=== PATIENT | male | born 1945 | race Hispanic/Latino ===

== ENCOUNTER → 2017-03-10 | Outpatient (CLI) | payer OTHER ==
[~2017-03-10] MED LIST: ASPI-555 PO; ATOR10TA69 PO; CLOP75TA32 PO; LISI-613 PO; LISI1TAB11 PO
[2017-03-10 11:00] LABS: CREATININE 0.9 mg/dL (0.5-1.5)
== END | disposition home or self-care (01) ==
LOC: LAB 10:09
PROVIDERS: ATTEND Urology
DX: N45.1 Epididymitis (principal); R31.29 Other microscopic hematuria
CPT/HCPCS: 36415; 82565; 84520

== ENCOUNTER → 2017-03-14 | Outpatient (CLI) | payer OTHER ==
[~2017-03-14] MED LIST changes: +IOPAMIDOL-370 75 ML VIAL IV ONE
== END | disposition home or self-care (01) ==
LOC: RAH 07:24
PROVIDERS: ATTEND Urology
DX: N45.3 Epididymo-orchitis (principal); R31.29 Other microscopic hematuria; N28.1 Cyst of kidney, acquired; I70.0 Atherosclerosis of aorta; N43.3 Hydrocele, unspecified; K57.90 Diverticulosis of intestine, part unspecified, without perforation or abscess without bleeding
CPT/HCPCS: 74178; 76870; Q9967

== ENCOUNTER → 2017-07-26 | Outpatient (CLI) | payer OTHER ==
[~2017-07-26] MED LIST changes: -IOPAMIDOL-370 75 ML VIAL IV ONE
== END | disposition home or self-care (01) ==
LOC: RAH 08:51
PROVIDERS: ATTEND Physical Medicine & Rehabilitation
DX: M25.552 Pain in left hip (principal); M25.551 Pain in right hip
CPT/HCPCS: 73522

== ENCOUNTER → 2021-05-07 | Outpatient (CLI) | payer OTHER ==
[~2021-05-07] MED LIST changes: -ASPI-555 PO; +ASPI-556 PO; -LISI-613 PO; -LISI1TAB11 PO; +LISI1TAB51 PO; +LISI20TA24 PO
== END | disposition home or self-care (01) ==
LOC: SLP 21:00
PROVIDERS: ATTEND Internal Medicine Cardiovascular Disease
DX: G47.33 Obstructive sleep apnea (adult) (pediatric) (principal)
CPT/HCPCS: 95810; 95811

== ENCOUNTER → 2021-05-22 | Outpatient (CLI) | payer OTHER | END | disposition home or self-care (01) | LOC: SLP 20:22 | PROVIDERS: ATTEND Internal Medicine Cardiovascular Disease | DX: G47.33 Obstructive sleep apnea (adult) (pediatric) (principal) | CPT/HCPCS: 95811 ==

== ENCOUNTER → 2021-05-26 | Outpatient (CLI) | payer OTHER | END | disposition home or self-care (01) | LOC: SHCH 12:28 | PROVIDERS: ATTEND Internal Medicine Cardiovascular Disease | DX: I35.1 Nonrheumatic aortic (valve) insufficiency (principal); I65.23 Occlusion and stenosis of bilateral carotid arteries; R01.1 Cardiac murmur, unspecified; R07.89 Other chest pain | CPT/HCPCS: 93306; 93880 ==

== ENCOUNTER → 2021-07-09 | Outpatient (CLI) | payer OTHER ==
[~2021-07-09] MED LIST changes: +REGADENOSON 0.4 MG/5 ML PF SYG IVP SCH
== END | disposition home or self-care (01) ==
LOC: OIH 08:20
PROVIDERS: ATTEND Internal Medicine Cardiovascular Disease
DX: I11.9 Hypertensive heart disease without heart failure (principal); I25.2 Old myocardial infarction; E78.5 Hyperlipidemia, unspecified; Z95.5 Presence of coronary angioplasty implant and graft
CPT/HCPCS: 78452; 93017; 96374; A9500 ×2; J2785

== ENCOUNTER 2021-08-27 06:37 | Day surgery (SDC) | payer OTHER ==
[2021-08-25 13:46] LABS: BASOPHILS % (AUTO) 0.6 % (0.0-5.0); EOSINOPHILS % (AUTO) 4.6 % (0.0-8.0); HEMATOCRIT 45.7 % (42-54); LYMPHOCYTES % (AUTO) 31.6 % (21.0-51.0); MEAN CORPUSCULAR HEMOGLOBIN 31.2 pg (27.0-33.0); MEAN CORPUSCULAR HGB CONC 33.9 g/dL (32.0-36.0); MONOCYTES % (AUTO) 7.8 % (3.0-13.0); NEUTROPHILS % (AUTO) 55.2 % (40.0-77.0); PLATELET COUNT (AUTO) 224 K/uL (130-400); RED BLOOD CELL COUNT(AUTO) 4.97 MIL/uL (4.50-6.20); RED CELL DISTRIBUTION WIDTH 14.3 % (11.0-15.5); WHITE BLOOD COUNT (AUTO) 9.6 K/uL (4.8-10.8)
[2021-08-25 13:51] LABS: APPEARANCE,URINE CLEAR (CLEAR); BILIRUBIN,URINE NEGATIVE (NEGATIVE); COLOR,URINE YELLOW (YELLOW); GLUCOSE, URINE (UA) NEGATIVE (NEGATIVE); KETONES,URINE NEGATIVE (NEGATIVE); LEUKOCYTE ESTERASE ,URINE NEGATIVE (NEGATIVE); NITRATE,URINE NEGATIVE (NEGATIVE); OCCULT BLOOD,URINE NEGATIVE (NEGATIVE); PROTEIN,URINE 100 mg/dL (NEGATIVE); UROBILINOGEN,URINE 0.2 mg/dL (0.2-1.0)
[2021-08-25 13:58] LABS: CREATININE 1.3 mg/dL (0.5-1.5); POTASSIUM 4.1 mmol/L (3.5-5.1)
[2021-08-25 14:00] LABS: INR 0.93 (0.85-1.15); PROTHROMBIN TIME 10.2 SEC (9.6-11.6)
[2021-08-25 14:01] LABS: PARTIAL THROMBOPLASTIN TIME 27.6 SEC (26.3-35.5)
[2021-08-25 14:19] LABS: B-TYPE NATRIURETIC PEPTIDE 83 pg/mL (0-100)
[2021-08-25 14:45] LABS: RBC,URINE 0-1 /HPF (0-1); WBC,URINE 0-1 /HPF (0-1)
[2021-08-25 14:46] LABS: BACTERIA,URINE Rare /HPF (None Seen); SQUAMOUS EPITHELIAL CELL,UR Rare /HPF (0-2)
[2021-08-25 16:13] VITALS: BP 196/67
[2021-08-27] VITALS (12 sets, daily range): BP systolic 140–195; BP diastolic 50–90
[~2021-08-27] VITALS: Ht 175.3 cm; Wt 110.0 kg
[~2021-08-27 06:37] MED LIST changes: -REGADENOSON 0.4 MG/5 ML PF SYG IVP SCH
[2021-08-27] MEDS ORDERED: 0.9%NACL 1000ML 1,000 ML IV ONE (07:01)
[2021-08-27] MEDS ORDERED: FURO40TA5 PO (07:30)
[2021-08-27] MEDS ORDERED: LISI1TAB51 PO (07:30)
[2021-08-27] MEDS ORDERED: AMLO-257 PO (07:30)
[2021-08-27] MEDS ORDERED: FLUT15.845 NS (07:30)
[2021-08-27] MEDS ORDERED: ROSU20TA31 PO (07:30)
[2021-08-27] MEDS ORDERED: LIDOCAINE HCL 400MG/20ML VIAL ONE (10:52)
[2021-08-27] MEDS ORDERED: NITROGLYCERIN 50MG VIAL ONE (10:52)
[2021-08-27] MEDS ORDERED: IOHEXOL-350 50ML VIAL IV ONE (10:52)
[2021-08-27] MEDS ORDERED: HEPARIN 10,000 UNIT/10ML (1,000 UNIT/ML) VIAL ONE (10:52)
[2021-08-27] MEDS ORDERED: MEPERIDINE-PF 25 MG/ML SYG ONE ×2 (10:52→11:29)
[2021-08-27] MEDS ORDERED: SODIUM BICARB 50MEQ 50ML VIAL 50 ML ONE (10:52)
[2021-08-27] MEDS ORDERED: IOHEXOL 350 MG/ML 100ML INFUS..BTL IV ONE (10:52)
[2021-08-27] MEDS ORDERED: MIDAZOLAM HCL 1 MG/ML 2ML VIAL ONE ×2 (10:52→11:29)
[2021-08-27] MEDS ORDERED: HYDRALAZINE 20MG/ML VIAL ONE (11:39)
[2021-08-27] MEDS ORDERED: 0.9%NACL 1000ML 1,000 ML IV SCH (12:00)
== END 2021-08-27 18:07 | disposition home or self-care (01) ==
LOC: DAH 06:37
PROVIDERS: ATTEND Internal Medicine Cardiovascular Disease
DX: I25.119 Atherosclerotic heart disease of native coronary artery with unspecified angina pectoris (principal); I13.0 Hypertensive heart and chronic kidney disease with heart failure and stage 1 through stage 4 chronic kidney disease, or unspecified chronic kidney disease; N18.9 Chronic kidney disease, unspecified; I50.32 Chronic diastolic (congestive) heart failure; I42.9 Cardiomyopathy, unspecified; E66.9 Obesity, unspecified; G47.33 Obstructive sleep apnea (adult) (pediatric); Z79.899 Other long term (current) drug therapy; Z79.01 Long term (current) use of anticoagulants; Z95.5 Presence of coronary angioplasty implant and graft; Z87.891 Personal history of nicotine dependence; Z82.49 Family history of ischemic heart disease and other diseases of the circulatory system
CPT/HCPCS: 36415; 71045; 80048; 81001; 83880; 85025; 85610; 85730; 93005; 93458; A4215; A4216; A4221; A4222; A4223 ×3; A4606; A4663; C1760; C1894; J0360; J1644; J2175 ×2; J2250 ×2; J3490 ×3; J7030; Q9965; Q9967; 99156; 99157

== ENCOUNTER → 2022-01-21 | Outpatient (CLI) | payer OTHER ==
[~2022-01-21] MED LIST changes: +AMLO-257 PO; -ATOR10TA69 PO; -CLOP75TA32 PO; +FLUT15.845 NS; +FURO40TA5 PO; -LISI20TA24 PO; +ROSU20TA31 PO
[2022-01-21 12:31] LABS: BASOPHILS % (AUTO) 0.7 % (0.0-5.0); EOSINOPHILS % (AUTO) 5.4 % (0.0-8.0); HEMATOCRIT 44.5 % (42-54); MEAN CORPUSCULAR HEMOGLOBIN 31.2 pg (27.0-33.0); MEAN CORPUSCULAR HGB CONC 34.4 g/dL (32.0-36.0); MEAN CORPUSCULAR VOLUME 90.8 fL (79-99); MONOCYTES % (AUTO) 8.2 % (3.0-13.0); NEUTROPHILS % (AUTO) 60.3 % (40.0-77.0); PLATELET COUNT (AUTO) 236 K/uL (130-400); RED CELL DISTRIBUTION WIDTH 14.2 % (11.0-15.5); WHITE BLOOD COUNT (AUTO) 11.3 K/uL (4.8-10.8)
[2022-01-21 12:48] LABS: HEMOGLOBIN A1C 5.6 % (4.0-6.0)
[2022-01-21 12:57] LABS: ALBUMIN 3.8 g/dL (3.5-5.0); CREATININE 1.1 mg/dL (0.5-1.5); POTASSIUM 4.4 mmol/L (3.5-5.1); TOTAL PROTEIN, SERUM 7.1 g/dL (6.0-8.3)
== END | disposition home or self-care (01) ==
LOC: LAB 08:09
PROVIDERS: ATTEND Internal Medicine Cardiovascular Disease
DX: I25.10 Atherosclerotic heart disease of native coronary artery without angina pectoris (principal); I10 Essential (primary) hypertension; Z79.899 Other long term (current) drug therapy
CPT/HCPCS: 36415; 80053; 80061; 83036; 85025

== ENCOUNTER 2022-02-05 22:30 | Observation (INO) | payer OTHER ==
[~2022-02-05] VITALS: Ht 175.3 cm; Wt 104.6 kg
[2022-02-05 23:11] LABS: BASOPHILS % (AUTO) 0.6 % (0.0-5.0); EOSINOPHILS % (AUTO) 5.5 % (0.0-8.0); HEMATOCRIT 42.1 % (42-54); LYMPHOCYTES % (AUTO) 36.1 % (21.0-51.0); MEAN CORPUSCULAR HEMOGLOBIN 31.3 pg (27.0-33.0); MEAN CORPUSCULAR HGB CONC 35.2 g/dL (32.0-36.0); MONOCYTES % (AUTO) 9.4 % (3.0-13.0); NEUTROPHILS % (AUTO) 48.1 % (40.0-77.0); PLATELET COUNT (AUTO) 221 K/uL (130-400); RED BLOOD CELL COUNT(AUTO) 4.73 MIL/uL (4.50-6.20); RED CELL DISTRIBUTION WIDTH 13.5 % (11.0-15.5)
[2022-02-05 23:19] LABS: APPEARANCE,URINE CLEAR (CLEAR); BILIRUBIN,URINE NEGATIVE (NEGATIVE); COLOR,URINE LIGHT-YELLOW (YELLOW); GLUCOSE, URINE (UA) NEGATIVE (NEGATIVE); KETONES,URINE NEGATIVE (NEGATIVE); LEUKOCYTE ESTERASE ,URINE NEGATIVE Leu/uL (NEGATIVE); NITRATE,URINE NEGATIVE (NEGATIVE); PH,URINE 5.5 (5.0-8.0); PROTEIN,URINE 100 mg/dL (NEGATIVE); UROBILINOGEN,URINE 0.2 mg/dL (0.2-1.0)
[2022-02-05 23:23] LABS: MUCUS,URINE RARE LPF (None Seen); SQUAMOUS EPITHELIAL CELL,UR RARE /HPF (0-2)
[2022-02-05 23:39] LABS: CREATININE 1.1 mg/dL (0.5-1.5); POTASSIUM 4.3 mmol/L (3.5-5.1)
[2022-02-05 23:43] LABS: ALBUMIN 3.8 g/dL (3.5-5.0); TOTAL PROTEIN, SERUM 6.6 g/dL (6.0-8.3)
[2022-02-06] MEDS ORDERED: POTASSIUM CHLORIDE 20MEQ/100ML 100 ML IV PRN (02:00)
[2022-02-06] MEDS ORDERED: LABETALOL 20MG SYG IV PRN (02:00)
[2022-02-06] MEDS ORDERED: MAGNESIUM 2GM PREMIX 50ML 50 ML IV PRN (02:00)
[2022-02-06] MEDS ORDERED: DEXTROSE 50%-WATER 50 ML DISP.SYRIN IV PRN (02:00)
[2022-02-06] MEDS ORDERED: ACETAMINOPHEN 650 MG SUPPOSITORY RC PRN (02:00)
[2022-02-06] MEDS ORDERED: CLONIDINE HCL 0.1 MG TABLET PO PRN (02:00)
[2022-02-06] MEDS ORDERED: HYDRALAZINE 20MG/ML VIAL IV PRN (02:00)
[2022-02-06] MEDS ORDERED: LIDOCAINE HCL-MPF 1% 2ML VIAL IV PRN (02:00)
[2022-02-06] MEDS ORDERED: LACTULOSE 20 GM/30 ML UDCUP PO PRN (02:00)
[2022-02-06] MEDS ORDERED: ONDANSETRON 4MG INJ IVP PRN (02:00)
[2022-02-06] MEDS ORDERED: ASPIRIN 81MG CHEW TAB PO ONE (02:00)
[2022-02-06] MEDS ORDERED: ACETAMINOPHEN 325 MG TAB PO PRN (02:00)
[2022-02-06] MEDS ORDERED: HEPARIN 5,000 UNIT VIAL SQ PRN (02:00)
[2022-02-06] MEDS ORDERED: DOCUSATE SODIUM 100 MG CAP PO PRN (02:00)
[2022-02-06] MEDS ORDERED: GLUCAGON 1MG KIT 1 MG ML IM PRN (02:00)
[2022-02-06 02:29] LABS: BASOPHILS % (AUTO) 0.7 % (0.0-5.0); EOSINOPHILS % (AUTO) 5.1 % (0.0-8.0); HEMATOCRIT 41.8 % (42-54); MEAN CORPUSCULAR HEMOGLOBIN 31.4 pg (27.0-33.0); MEAN CORPUSCULAR HGB CONC 34.4 g/dL (32.0-36.0); MEAN CORPUSCULAR VOLUME 91.3 fL (79-99); MONOCYTES % (AUTO) 7.7 % (3.0-13.0); NEUTROPHILS % (AUTO) 48.2 % (40.0-77.0); PLATELET COUNT (AUTO) 199 K/uL (130-400); RED BLOOD CELL COUNT(AUTO) 4.58 MIL/uL (4.50-6.20); RED CELL DISTRIBUTION WIDTH 13.4 % (11.0-15.5); WHITE BLOOD COUNT (AUTO) 8.8 K/uL (4.8-10.8)
[2022-02-06 05:15] LABS: INR 0.94 (0.85-1.15); PROTHROMBIN TIME 10.3 SEC (9.6-11.6)
[2022-02-06 05:16] LABS: PARTIAL THROMBOPLASTIN TIME 27.3 SEC (26.3-35.5)
[2022-02-06 05:20] VITALS: BP 155/60
[2022-02-06] MEDS: HEPARIN 25,000 UNITS/250ML D5W 250 ML IV SCH ×2 (05:34→20:50)
[2022-02-06 07:45] VITALS: BP 133/51
[2022-02-06] MEDS ORDERED: IOHEXOL 350 MG/ML 100ML INFUS..BTL IV ONE (08:15)
[2022-02-06] MEDS: ASPIRIN 81MG CHEW TAB PO SCH (09:29)
[2022-02-06 10:56] VITALS: BP 123/59
[2022-02-06 11:13] LABS: INR 0.98 (0.85-1.15); PROTHROMBIN TIME 10.7 SEC (9.6-11.6)
[2022-02-06 11:14] LABS: PARTIAL THROMBOPLASTIN TIME 78.1 SEC (26.3-35.5)
[2022-02-06 16:00] VITALS: BP 141/69
[2022-02-06] MEDS ORDERED: FUROSEMIDE 40MG VIAL IV ONE (18:30)
[2022-02-06 19:56] VITALS: BP 161/52
[2022-02-06] MEDS: ATORVASTATIN 40 MG TABLET PO SCH (20:25)
[2022-02-06] MEDS: TICAGRELOR 90 MG TABLET PO SCH (20:25)
[2022-02-06] MEDS: TEMAZEPAM 15 MG CAPSULE PO PRN (21:53)
[2022-02-06] MEDS: LISINOPRIL 20 MG TABLET PO SCH (21:53)
[2022-02-06 23:50] VITALS: BP 148/31
[2022-02-07] VITALS (10 sets, daily range): BP systolic 119–170; BP diastolic 52–72
[2022-02-07 04:23] LABS: BASOPHILS % (AUTO) 0.7 % (0.0-5.0); EOSINOPHILS % (AUTO) 5.6 % (0.0-8.0); HEMATOCRIT 42.4 % (42-54); LYMPHOCYTES % (AUTO) 31.5 % (21.0-51.0); MEAN CORPUSCULAR HEMOGLOBIN 31.6 pg (27.0-33.0); MEAN CORPUSCULAR HGB CONC 34.7 g/dL (32.0-36.0); MEAN CORPUSCULAR VOLUME 91.2 fL (79-99); MONOCYTES % (AUTO) 8.2 % (3.0-13.0); NEUTROPHILS % (AUTO) 53.6 % (40.0-77.0); PLATELET COUNT (AUTO) 202 K/uL (130-400); RED BLOOD CELL COUNT(AUTO) 4.65 MIL/uL (4.50-6.20); RED CELL DISTRIBUTION WIDTH 13.8 % (11.0-15.5); WHITE BLOOD COUNT (AUTO) 9.5 K/uL (4.8-10.8)
[2022-02-07 04:34] LABS: CREATININE 1.1 mg/dL (0.5-1.5); MAGNESIUM 1.7 mg/dL (1.80-2.40); PHOSPHORUS 4.1 mg/dL (2.5-4.9); POTASSIUM 3.7 mmol/L (3.5-5.1)
[2022-02-07 07:03] LABS: INR 0.98 (0.85-1.15); PROTHROMBIN TIME 10.7 SEC (9.6-11.6)
[2022-02-07 07:04] LABS: PARTIAL THROMBOPLASTIN TIME 57.8 SEC (26.3-35.5)
[2022-02-07] MEDS ORDERED: KCL 20 MEQ ERTAB PO ONE (08:05)
[2022-02-07] MEDS: LISINOPRIL 20 MG TABLET PO SCH ×2 (08:25→20:40)
[2022-02-07] MEDS: TICAGRELOR 90 MG TABLET PO SCH ×2 (08:25→20:40)
[2022-02-07] MEDS: AMLODIPINE 5 MG TAB PO SCH (08:25)
[2022-02-07] MEDS: FUROSEMIDE 40MG VIAL IV SCH (08:26)
[2022-02-07] MEDS: ASPIRIN 81MG CHEW TAB PO SCH (08:26)
[2022-02-07] MEDS ORDERED: HYDROCHLOROTHIAZIDE 25 MG TABLET PO SCH (09:00)
[2022-02-07] MEDS ORDERED: HEPARIN 10,000 UNIT/10ML (1,000 UNIT/ML) VIAL ONE (10:43)
[2022-02-07] MEDS ORDERED: IOHEXOL 350 MG/ML 100ML INFUS..BTL IV ONE (10:43)
[2022-02-07] MEDS ORDERED: VERAPAMIL HCL 2.5 MG/ML VIAL ONE (10:43)
[2022-02-07] MEDS ORDERED: MIDAZOLAM HCL 1 MG/ML 2ML VIAL ONE ×2 (10:43→11:56)
[2022-02-07] MEDS ORDERED: NITROGLYCERIN 50MG VIAL ONE (10:43)
[2022-02-07] MEDS ORDERED: IOHEXOL-350 50ML VIAL IV ONE (10:43)
[2022-02-07] MEDS ORDERED: LIDOCAINE HCL 400MG/20ML VIAL ONE (10:44)
[2022-02-07] MEDS ORDERED: FENTANYL CITRATE PF 50 MCG/1 ML 2ML VIAL ONE (10:44)
[2022-02-07] MEDS ORDERED: GLUCAGON 1MG KIT 1 MG ML IM PRN (13:00)
[2022-02-07] MEDS ORDERED: DEXTROSE 50%-WATER 50 ML DISP.SYRIN IV PRN (13:00)
[2022-02-07] MEDS: METOPROLOL SUCCINATE 25 MG TAB.SR.24H PO SCH (14:24)
[2022-02-07] MEDS: ATORVASTATIN 40 MG TABLET PO SCH (20:40)
[2022-02-07] MEDS: TEMAZEPAM 15 MG CAPSULE PO PRN (20:50)
[2022-02-08 00:24] VITALS: BP 150/54
[2022-02-08 03:24] VITALS: BP 149/66
[2022-02-08 03:54] LABS: BASOPHILS % (AUTO) 0.4 % (0.0-5.0); EOSINOPHILS % (AUTO) 5.5 % (0.0-8.0); HEMATOCRIT 42.3 % (42-54); LYMPHOCYTES % (AUTO) 22.1 % (21.0-51.0); MEAN CORPUSCULAR HEMOGLOBIN 31.4 pg (27.0-33.0); MEAN CORPUSCULAR HGB CONC 35.2 g/dL (32.0-36.0); MEAN CORPUSCULAR VOLUME 89.1 fL (79-99); MONOCYTES % (AUTO) 8.7 % (3.0-13.0); PLATELET COUNT (AUTO) 201 K/uL (130-400); RED BLOOD CELL COUNT(AUTO) 4.75 MIL/uL (4.50-6.20); WHITE BLOOD COUNT (AUTO) 9.8 K/uL (4.8-10.8)
[2022-02-08 08:30] VITALS: BP 128/58
[2022-02-08] MEDS: ASPIRIN 81MG CHEW TAB PO SCH (09:58)
[2022-02-08] MEDS: LISINOPRIL 20 MG TABLET PO SCH (09:58)
[2022-02-08] MEDS: AMLODIPINE 5 MG TAB PO SCH (09:58)
[2022-02-08] MEDS: FUROSEMIDE 40MG VIAL IV SCH (09:58)
[2022-02-08] MEDS: METOPROLOL SUCCINATE 25 MG TAB.SR.24H PO SCH (09:58)
[2022-02-08] MEDS: TICAGRELOR 90 MG TABLET PO SCH (10:00)
[2022-02-08 12:20] VITALS: BP 139/65
[2022-02-08] MEDS ORDERED: LISI20TA24 PO (12:40)
[2022-02-08] MEDS ORDERED: TICA90TA PO (12:40)
[2022-02-08] MEDS ORDERED: AMLO10TA4 PO (12:40)
[2022-02-08] MEDS ORDERED: SPIR25TA PO (12:40)
[2022-02-08] MEDS ORDERED: METO25TA6 PO (12:40)
== END 2022-02-08 15:20 | disposition home or self-care (01) ==
LOC: EDH 22:30 → EDHIP 02-06 01:41 → 2DH 02-06 03:26
PROVIDERS: ADMIT Internal Medicine; ATTEND Internal Medicine
DX: I25.110 Atherosclerotic heart disease of native coronary artery with unstable angina pectoris (principal); I16.1 Hypertensive emergency; I11.0 Hypertensive heart disease with heart failure; I50.32 Chronic diastolic (congestive) heart failure; I25.2 Old myocardial infarction; I35.2 Nonrheumatic aortic (valve) stenosis with insufficiency; I42.9 Cardiomyopathy, unspecified; I25.10 Atherosclerotic heart disease of native coronary artery without angina pectoris; G47.33 Obstructive sleep apnea (adult) (pediatric); E11.9 Type 2 diabetes mellitus without complications; I35.0 Nonrheumatic aortic (valve) stenosis; F41.9 Anxiety disorder, unspecified; E66.9 Obesity, unspecified; E78.00 Pure hypercholesterolemia, unspecified; Z68.34 Body mass index [BMI] 34.0-34.9, adult; Z72.0 Tobacco use; Z79.02 Long term (current) use of antithrombotics/antiplatelets; Z79.82 Long term (current) use of aspirin; Z91.199 Patient's noncompliance with other medical treatment and regimen due to unspecified reason; Z95.5 Presence of coronary angioplasty implant and graft; Z79.899 Other long term (current) drug therapy; Z98.890 Other specified postprocedural states
CPT/HCPCS: 99285; 84484 ×3; 80053; 85025 ×4; 81001; 36415 ×4; 71045; 93005 ×3; 96365; 96366 ×2; 96375; 84443; 83880; 85378; 85610 ×3; 85730 ×4; 71270; 93306; 93356; 93970; 93460; 96376 ×2; 96367; 83735; 84100; 80048; G0378 ×57; J0360; J1644 ×7; J1940 ×3; Q9967; C1769 ×3; C1894 ×5; C1760; Q9965; J3475; J3010; J3490 ×3; J2250 ×2; 99156; 99157

== ENCOUNTER 2022-02-15 21:44 | Emergency (ER) | payer OTHER ==
[~2022-02-15 21:44] MED LIST changes: -AMLO-257 PO; +AMLO10TA4 PO; -FLUT15.845 NS; -LISI1TAB51 PO; +LISI20TA24 PO; +METO25TA6 PO; +SPIR25TA PO; +TICA90TA PO
[2022-02-15 22:10] LABS: BASOPHILS % (AUTO) 0.7 % (0.0-5.0); EOSINOPHILS % (AUTO) 5.6 % (0.0-8.0); HEMATOCRIT 42.6 % (42-54); LYMPHOCYTES % (AUTO) 32.1 % (21.0-51.0); MEAN CORPUSCULAR HEMOGLOBIN 31.1 pg (27.0-33.0); MEAN CORPUSCULAR HGB CONC 35.2 g/dL (32.0-36.0); MEAN CORPUSCULAR VOLUME 88.4 fL (79-99); MONOCYTES % (AUTO) 7.5 % (3.0-13.0); NEUTROPHILS % (AUTO) 53.9 % (40.0-77.0); PLATELET COUNT (AUTO) 212 K/uL (130-400); RED BLOOD CELL COUNT(AUTO) 4.82 MIL/uL (4.50-6.20); RED CELL DISTRIBUTION WIDTH 13.7 % (11.0-15.5); WHITE BLOOD COUNT (AUTO) 9.5 K/uL (4.8-10.8)
[2022-02-15 22:20] LABS: CREATININE 1.2 mg/dL (0.5-1.5); POTASSIUM 4.2 mmol/L (3.5-5.1)
[2022-02-15 22:21] LABS: INR 0.94 (0.85-1.15); PROTHROMBIN TIME 10.3 SEC (9.6-11.6)
[2022-02-15 22:22] LABS: PARTIAL THROMBOPLASTIN TIME 27.6 SEC (26.3-35.5)
[2022-02-15 22:25] LABS: ALBUMIN 3.8 g/dL (3.5-5.0); TOTAL PROTEIN, SERUM 6.9 g/dL (6.0-8.3)
[2022-02-15] MEDS ORDERED: NITR0.4T50 SL (22:49)
[2022-02-15 22:50] LABS: B-TYPE NATRIURETIC PEPTIDE 111 pg/mL (0-100)
== END 2022-02-16 01:07 | disposition home or self-care (01) ==
LOC: EDH 21:44
DX: R07.89 Other chest pain (principal); F17.200 Nicotine dependence, unspecified, uncomplicated; E78.00 Pure hypercholesterolemia, unspecified; I10 Essential (primary) hypertension; I25.2 Old myocardial infarction; Z79.82 Long term (current) use of aspirin; Z79.899 Other long term (current) drug therapy; Z20.822 Contact with and (suspected) exposure to COVID-19
CPT/HCPCS: 99285; 71045; 87635; 84484; 80053; 83880; 85025; 85610; 85730; 87804 ×2; 36415; 93005; C9803

== ENCOUNTER → 2022-03-30 | Outpatient (CLI) | payer OTHER ==
[~2022-03-30] MED LIST changes: +NITR0.4T50 SL
== END | disposition home or self-care (01) ==
LOC: SHCH 08:09
PROVIDERS: ATTEND Internal Medicine Cardiovascular Disease
DX: I08.0 Rheumatic disorders of both mitral and aortic valves (principal)
CPT/HCPCS: 93306

== ENCOUNTER → 2022-04-15 | Outpatient (CLI) | payer OTHER ==
[2022-04-15 10:36] LABS: BASOPHILS % (AUTO) 0.4 % (0.0-5.0); EOSINOPHILS % (AUTO) 1.1 % (0.0-8.0); HEMATOCRIT 41.7 % (42-54); MEAN CORPUSCULAR HEMOGLOBIN 31.5 pg (27.0-33.0); MEAN CORPUSCULAR HGB CONC 34.8 g/dL (32.0-36.0); MEAN CORPUSCULAR VOLUME 90.7 fL (79-99); MONOCYTES % (AUTO) 6.8 % (3.0-13.0); NEUTROPHILS % (AUTO) 69.5 % (40.0-77.0); PLATELET COUNT (AUTO) 226 K/uL (130-400); RED CELL DISTRIBUTION WIDTH 13.8 % (11.0-15.5); WHITE BLOOD COUNT (AUTO) 9.1 K/uL (4.8-10.8)
[2022-04-15 10:47] LABS: CREATININE 1.3 mg/dL (0.5-1.5)
== END | disposition home or self-care (01) ==
LOC: LAB 08:59
PROVIDERS: ATTEND Urology
DX: R31.0 Gross hematuria (principal)
CPT/HCPCS: 36415; 80048; 85025

== ENCOUNTER → 2022-04-18 | Outpatient (CLI) | payer OTHER ==
[~2022-04-18] MED LIST changes: +IOHEXOL 350 MG/ML 100ML INFUS..BTL IV ONE
== END | disposition home or self-care (01) ==
LOC: RAH 08:08
PROVIDERS: ATTEND Urology
DX: N28.1 Cyst of kidney, acquired (principal); K57.30 Diverticulosis of large intestine without perforation or abscess without bleeding; I71.43 Infrarenal abdominal aortic aneurysm, without rupture; R31.0 Gross hematuria
CPT/HCPCS: 74178; Q9967

== ENCOUNTER → 2022-09-21 | Outpatient (CLI) | payer OTHER ==
[~2022-09-21] MED LIST changes: -IOHEXOL 350 MG/ML 100ML INFUS..BTL IV ONE; -ROSU20TA31 PO; +ROSU20TA73 PO
== END | disposition home or self-care (01) ==
LOC: RAH 11:58
PROVIDERS: ATTEND Family Medicine
DX: S09.90XA Unspecified injury of head, initial encounter (principal); G31.9 Degenerative disease of nervous system, unspecified; R47.81 Slurred speech; W19.XXXA Unspecified fall, initial encounter; R90.82 White matter disease, unspecified; X58.XXXA Exposure to other specified factors, initial encounter; Y93.89 Activity, other specified; Y92.89 Other specified places as the place of occurrence of the external cause; Y99.8 Other external cause status
CPT/HCPCS: 70450

== ENCOUNTER 2022-11-23 19:31 | Inpatient (IN) | payer OTHER ==
[~2022-11-23] VITALS: Ht 177.8 cm; Wt 102.8 kg
[2022-11-23 19:57] LABS: BASOPHILS # (AUTO) 0.06 K/uL (0.00-0.20); BASOPHILS % (AUTO) 0.7 % (0.0-5.0); EOSINOPHILS # (AUTO) 0.29 K/uL (0.00-0.70); EOSINOPHILS % (AUTO) 3.5 % (0.0-8.0); HEMATOCRIT 40.6 % (42-54); IMMATURE GRANULOCYTE ABSOLUTE 0.03 K/uL (0-1); LYMPHOCYTES # (AUTO) 2.4 K/uL (1.0-4.8); LYMPHOCYTES % (AUTO) 28.6 % (21.0-51.0); MEAN CORPUSCULAR HEMOGLOBIN 31.6 pg (27.0-33.0); MEAN CORPUSCULAR HGB CONC 34.7 g/dL (32.0-36.0); MONOCYTES # (AUTO) 0.7 K/uL (0.1-1.0); MONOCYTES % (AUTO) 8.1 % (3.0-13.0); NEUTROPHILS # (AUTO) 4.9 K/uL (1.8-7.7); NEUTROPHILS % (AUTO) 58.7 % (40.0-77.0); PLATELET COUNT (AUTO) 196 K/uL (130-400); RED BLOOD CELL COUNT(AUTO) 4.46 MIL/uL (4.50-6.20); RED CELL DISTRIBUTION WIDTH 14.3 % (11.0-15.5); WHITE BLOOD COUNT (AUTO) 8.4 K/uL (4.8-10.8)
[2022-11-23 20:06] LABS: CREATININE 1.2 mg/dL (0.5-1.5)
[2022-11-23 20:09] LABS: INR 0.94 (0.85-1.15); PROTHROMBIN TIME 10.9 SEC (9.6-11.6)
[2022-11-23 20:10] LABS: ALBUMIN 3.5 g/dL (3.5-5.0); BILIRUBIN,TOTAL 0.4 mg/dL (0.2-1.0); MAGNESIUM 1.7 mg/dL (1.80-2.40); PARTIAL THROMBOPLASTIN TIME 28.8 SEC (26.3-35.5); TOTAL PROTEIN, SERUM 6.4 g/dL (6.0-8.3)
[2022-11-23 20:19] LABS: B-TYPE NATRIURETIC PEPTIDE 423 pg/mL (0-100)
[2022-11-23] MEDS ORDERED: ACETAMINOPHEN 650 MG SUPPOSITORY RC PRN (22:30)
[2022-11-23] MEDS ORDERED: LABETALOL 20MG SYG IV PRN (22:30)
[2022-11-23] MEDS ORDERED: HYDRALAZINE 20MG/ML VIAL IV PRN (22:30)
[2022-11-23] MEDS ORDERED: LACTULOSE 20 GM/30 ML UDCUP PO PRN (22:30)
[2022-11-23] MEDS ORDERED: CLONIDINE HCL 0.1 MG TABLET PO PRN (22:30)
[2022-11-23] MEDS ORDERED: NITROGLYCERIN 0.4 MG SL TAB SL PRN (22:30)
[2022-11-23] MEDS ORDERED: ONDANSETRON 4MG INJ IVP PRN (22:30)
[2022-11-23] MEDS ORDERED: TEMAZEPAM 15 MG CAPSULE PO PRN (22:30)
[2022-11-23] MEDS ORDERED: ACETAMINOPHEN 325 MG TAB PO PRN (22:30)
[2022-11-23 23:17] LABS: CREATINE KINASE, TOTAL 73 U/L (21-232); MYOGLOBIN 57 ng/mL (10-92)
[2022-11-24] MEDS ORDERED: ASPIRIN 325MG TAB PO ONE
[2022-11-24 05:41] LABS: HEMATOCRIT 39.8 % (42-54); MEAN CORPUSCULAR HEMOGLOBIN 32.1 pg (27.0-33.0); MEAN CORPUSCULAR HGB CONC 35.4 g/dL (32.0-36.0); MEAN CORPUSCULAR VOLUME 90.7 fL (79-99); RED BLOOD CELL COUNT(AUTO) 4.39 MIL/uL (4.50-6.20); RED CELL DISTRIBUTION WIDTH 14.5 % (11.0-15.5)
[2022-11-24 05:53] LABS: CREATININE 1.1 mg/dL (0.5-1.5); POTASSIUM 4.1 mmol/L (3.5-5.1)
[2022-11-24 06:05] LABS: MAGNESIUM 1.7 mg/dL (1.80-2.40); PHOSPHORUS 4.8 mg/dL (2.5-4.9); THYROID STIMULATING HORMONE 3.14 uIU/mL (0.36-3.74)
[2022-11-24] MEDS: INSULIN HUMULIN R 100 UNIT/ML 3ML SQ SCH ×5 (07:24→21:13)
[2022-11-24] MEDS: METOPROLOL TARTRATE 25 MG TAB PO SCH ×2 (07:45→21:12)
[2022-11-24] MEDS: TICAGRELOR 90 MG TABLET PO SCH ×2 (08:00→21:12)
[2022-11-24] MEDS: SPIRONOLACTONE 25 MG TAB PO SCH ×2 (08:01→21:13)
[2022-11-24] MEDS: ASPIRIN 81 MG EC TAB PO SCH (08:01)
[2022-11-24] MEDS: ENOXAPARIN SODIUM 30 MG/0.3 ML SQ SCH (08:01)
[2022-11-24] MEDS: FAMOTIDINE 20MG TAB PO SCH ×2 (08:04→21:13)
[2022-11-24] MEDS ORDERED: MAGNESIUM 2GM PREMIX 50ML 50 ML IV SCH (08:30)
[2022-11-24] MEDS ORDERED: NON-FORMULARY MEDICATION 1 EACH (Rosuvastatin Calcium 20 MG) PO SCH (09:00)
[2022-11-24] MEDS ORDERED: NON-FORMULARY MEDICATION 1 EACH (Amlodipine Besylate (Norvasc) 10 MG) PO SCH (09:00)
[2022-11-24] MEDS ORDERED: ASPIRIN 81MG CHEW TAB PO SCH (09:00)
[2022-11-24] MEDS ORDERED: FUROSEMIDE 40 MG TABLET PO SCH (09:00)
[2022-11-24] MEDS ORDERED: AMLODIPINE 5 MG TAB PO SCH (09:00)
[2022-11-24] MEDS ORDERED: KCL 20 MEQ ERTAB PO SCH (13:00)
[2022-11-24] MEDS ORDERED: FUROSEMIDE 40MG VIAL IV SCH (13:00)
[2022-11-24 14:17] VITALS: BP 151/58; PULSE 68; RESP 18
[2022-11-24 14:40] VITALS: O2SAT 95
[2022-11-24 15:00] VITALS: O2SAT 95
[2022-11-24 16:04] VITALS: BP 150/54; PULSE 68; RESP 18
[2022-11-24 19:15] VITALS: BP 150/63; PULSE 81; RESP 22
[2022-11-24 20:00] VITALS: O2SAT 96
[2022-11-24] MEDS: SIMVASTATIN 20 MG TABLET PO SCH (21:12)
[2022-11-25] VITALS (9 sets, daily range): BP systolic 134–161; BP diastolic 49–73; PULSE 57–71; RESP 16–22; O2SAT 96–99
[2022-11-25 03:54] LABS: BASOPHILS # (AUTO) 0.07 K/uL (0.00-0.20); BASOPHILS % (AUTO) 0.7 % (0.0-5.0); EOSINOPHILS # (AUTO) 0.35 K/uL (0.00-0.70); EOSINOPHILS % (AUTO) 3.4 % (0.0-8.0); IMMATURE GRANULOCYTE ABSOLUTE 0.03 K/uL (0-1); LYMPHOCYTES # (AUTO) 3.1 K/uL (1.0-4.8); MEAN CORPUSCULAR HEMOGLOBIN 31.2 pg (27.0-33.0); MEAN CORPUSCULAR HGB CONC 34.2 g/dL (32.0-36.0); MEAN CORPUSCULAR VOLUME 91.3 fL (79-99); MONOCYTES # (AUTO) 0.8 K/uL (0.1-1.0); MONOCYTES % (AUTO) 7.9 % (3.0-13.0); NEUTROPHILS # (AUTO) 5.9 K/uL (1.8-7.7); NEUTROPHILS % (AUTO) 57.7 % (40.0-77.0); PLATELET COUNT (AUTO) 209 K/uL (130-400); RED BLOOD CELL COUNT(AUTO) 4.93 MIL/uL (4.50-6.20); RED CELL DISTRIBUTION WIDTH 14.1 % (11.0-15.5); WHITE BLOOD COUNT (AUTO) 10.2 K/uL (4.8-10.8)
[2022-11-25 04:02] LABS: CREATININE 1.3 mg/dL (0.5-1.5); POTASSIUM 4.1 mmol/L (3.5-5.1)
[2022-11-25] MEDS ORDERED: LOSARTAN 50 MG TABLET PO SCH (09:00)
[2022-11-25] MEDS: FUROSEMIDE 40MG VIAL IV SCH ×2 (09:30→21:29)
[2022-11-25] MEDS: ASPIRIN 81 MG EC TAB PO SCH (09:30)
[2022-11-25] MEDS: FAMOTIDINE 20MG TAB PO SCH ×2 (09:30→21:30)
[2022-11-25] MEDS: TICAGRELOR 90 MG TABLET PO SCH ×2 (09:31→21:31)
[2022-11-25] MEDS: SPIRONOLACTONE 25 MG TAB PO SCH ×2 (09:31→21:31)
[2022-11-25] MEDS: KCL 20 MEQ ERTAB PO SCH ×2 (09:32→21:30)
[2022-11-25] MEDS: METOPROLOL TARTRATE 25 MG TAB PO SCH ×2 (09:32→21:30)
[2022-11-25] MEDS: ENOXAPARIN SODIUM 30 MG/0.3 ML SQ SCH (09:34)
[2022-11-25] MEDS: INSULIN HUMULIN R 100 UNIT/ML 3ML SQ SCH ×3 (11:30→21:00)
[2022-11-25] MEDS: LISINOPRIL 40 MG TABLET PO SCH (12:13)
[2022-11-25] MEDS: SIMVASTATIN 20 MG TABLET PO SCH (21:29)
[2022-11-26] VITALS (7 sets, daily range): BP systolic 120–141; BP diastolic 57–94; PULSE 70–78; RESP 16–18; O2SAT 96
[2022-11-26 04:40] LABS: BASOPHILS # (AUTO) 0.05 K/uL (0.00-0.20); BASOPHILS % (AUTO) 0.5 % (0.0-5.0); EOSINOPHILS # (AUTO) 0.29 K/uL (0.00-0.70); EOSINOPHILS % (AUTO) 2.9 % (0.0-8.0); HEMATOCRIT 47.5 % (42-54); IMMATURE GRANULOCYTE ABSOLUTE 0.03 K/uL (0-1); LYMPHOCYTES % (AUTO) 29.3 % (21.0-51.0); MEAN CORPUSCULAR HGB CONC 35.8 g/dL (32.0-36.0); MEAN CORPUSCULAR VOLUME 89.3 fL (79-99); MONOCYTES # (AUTO) 0.7 K/uL (0.1-1.0); MONOCYTES % (AUTO) 7.3 % (3.0-13.0); NEUTROPHILS # (AUTO) 6.1 K/uL (1.8-7.7); NEUTROPHILS % (AUTO) 59.7 % (40.0-77.0); PLATELET COUNT (AUTO) 229 K/uL (130-400); RED BLOOD CELL COUNT(AUTO) 5.32 MIL/uL (4.50-6.20); RED CELL DISTRIBUTION WIDTH 14.2 % (11.0-15.5); WHITE BLOOD COUNT (AUTO) 10.2 K/uL (4.8-10.8)
[2022-11-26 04:51] LABS: CREATININE 1.3 mg/dL (0.5-1.5); POTASSIUM 3.8 mmol/L (3.5-5.1)
[2022-11-26] MEDS ORDERED: DiphenhydrAMINE HCL 50 MG/ML VIAL IM ONE (05:00)
[2022-11-26 05:31] LABS: ABG BASE EXCESS -0.6 mmol/L (-2.0-3.0); ABG HCO3 21.4 mmol/L (21.0-28.0); ABG OXYGEN SATURATION 95.4 % (95.0-99.0); ABG PCO2 29 mmHg (35-48); DEVICE COMMENT LR; PO2, ARTERIAL BG 69.5 mmHg (83.0-108.0); VENT MODE, BG ROOM AIR (ROOM AIR)
[2022-11-26] MEDS: INSULIN HUMULIN R 100 UNIT/ML 3ML SQ SCH ×4 (07:30→21:00)
[2022-11-26] MEDS ORDERED: LISINOPRIL 40 MG TABLET PO SCH (09:00)
[2022-11-26] MEDS: FUROSEMIDE 40MG VIAL IV SCH ×2 (09:37→21:22)
[2022-11-26] MEDS: ASPIRIN 81 MG EC TAB PO SCH (09:37)
[2022-11-26] MEDS: ENOXAPARIN SODIUM 30 MG/0.3 ML SQ SCH (09:37)
[2022-11-26] MEDS: TICAGRELOR 90 MG TABLET PO SCH ×2 (09:38→21:24)
[2022-11-26] MEDS: KCL 20 MEQ ERTAB PO SCH ×2 (09:38→21:23)
[2022-11-26] MEDS: SPIRONOLACTONE 25 MG TAB PO SCH ×2 (09:38→21:24)
[2022-11-26] MEDS: METOPROLOL TARTRATE 25 MG TAB PO SCH ×2 (09:39→21:24)
[2022-11-26] MEDS: LISINOPRIL 40 MG TABLET PO SCH (09:39)
[2022-11-26] MEDS: FAMOTIDINE 20MG TAB PO SCH ×2 (09:39→21:24)
[2022-11-26] MEDS: SIMVASTATIN 20 MG TABLET PO SCH (21:23)
[2022-11-27] VITALS (8 sets, daily range): BP systolic 134–151; BP diastolic 53–62; PULSE 58–67; RESP 14–18; O2SAT 96–98
[2022-11-27 03:57] LABS: BASOPHILS # (AUTO) 0.06 K/uL (0.00-0.20); BASOPHILS % (AUTO) 0.6 % (0.0-5.0); EOSINOPHILS # (AUTO) 0.36 K/uL (0.00-0.70); EOSINOPHILS % (AUTO) 3.4 % (0.0-8.0); HEMATOCRIT 46.3 % (42-54); IMMATURE GRANULOCYTE ABSOLUTE 0.03 K/uL (0-1); LYMPHOCYTES # (AUTO) 2.9 K/uL (1.0-4.8); MEAN CORPUSCULAR HEMOGLOBIN 31.6 pg (27.0-33.0); MEAN CORPUSCULAR HGB CONC 34.6 g/dL (32.0-36.0); MEAN CORPUSCULAR VOLUME 91.3 fL (79-99); MONOCYTES # (AUTO) 0.8 K/uL (0.1-1.0); MONOCYTES % (AUTO) 7.4 % (3.0-13.0); NEUTROPHILS # (AUTO) 6.5 K/uL (1.8-7.7); NEUTROPHILS % (AUTO) 61.3 % (40.0-77.0); PLATELET COUNT (AUTO) 218 K/uL (130-400); RED BLOOD CELL COUNT(AUTO) 5.07 MIL/uL (4.50-6.20); RED CELL DISTRIBUTION WIDTH 14.6 % (11.0-15.5); WHITE BLOOD COUNT (AUTO) 10.6 K/uL (4.8-10.8)
[2022-11-27 04:06] LABS: CREATININE 1.8 mg/dL (0.5-1.5); POTASSIUM 4.2 mmol/L (3.5-5.1)
[2022-11-27] MEDS: INSULIN HUMULIN R 100 UNIT/ML 3ML SQ SCH ×4 (06:46→21:00)
[2022-11-27] MEDS ORDERED: 0.9% NACL 500ML IV.SOLN 500 ML IV SCH (08:30)
[2022-11-27] MEDS: FUROSEMIDE 40 MG TABLET PO SCH (09:00)
[2022-11-27] MEDS: LISINOPRIL 40 MG TABLET PO SCH (09:00)
[2022-11-27] MEDS: KCL 20 MEQ ERTAB PO SCH ×2 (09:00→21:20)
[2022-11-27] MEDS: ASPIRIN 81 MG EC TAB PO SCH (09:00)
[2022-11-27] MEDS: TICAGRELOR 90 MG TABLET PO SCH (09:00)
[2022-11-27] MEDS: ENOXAPARIN SODIUM 30 MG/0.3 ML SQ SCH (09:00)
[2022-11-27] MEDS: SPIRONOLACTONE 25 MG TAB PO SCH ×2 (09:00→21:22)
[2022-11-27] MEDS: FAMOTIDINE 20MG TAB PO SCH ×2 (09:00→21:20)
[2022-11-27] MEDS: METOPROLOL TARTRATE 25 MG TAB PO SCH ×2 (09:00→21:00)
[2022-11-27 09:13] LABS: INR < 0.93 (0.85-1.15); PROTHROMBIN TIME 10.7 SEC (9.6-11.6)
[2022-11-27 09:15] LABS: PARTIAL THROMBOPLASTIN TIME 28.2 SEC (26.3-35.5)
[2022-11-27] MEDS: SIMVASTATIN 20 MG TABLET PO SCH (21:20)
[2022-11-28] VITALS (14 sets, daily range): BP systolic 129–190; BP diastolic 48–70; PULSE 51–61; RESP 16–19; O2SAT 98
[2022-11-28 03:48] LABS: CREATININE 1.5 mg/dL (0.5-1.5); POTASSIUM 4.5 mmol/L (3.5-5.1)
[2022-11-28] MEDS: INSULIN HUMULIN R 100 UNIT/ML 3ML SQ SCH ×4 (06:32→21:00)
[2022-11-28] MEDS: FUROSEMIDE 40 MG TABLET PO SCH (09:00)
[2022-11-28] MEDS: KCL 20 MEQ ERTAB PO SCH ×2 (09:00→21:00)
[2022-11-28] MEDS: FAMOTIDINE 20MG TAB PO SCH ×2 (09:00→21:06)
[2022-11-28] MEDS: ASPIRIN 81 MG EC TAB PO SCH (09:00)
[2022-11-28] MEDS: SPIRONOLACTONE 25 MG TAB PO SCH ×2 (09:00→21:06)
[2022-11-28] MEDS: METOPROLOL TARTRATE 25 MG TAB PO SCH ×2 (09:13→21:07)
[2022-11-28] MEDS ORDERED: SODIUM BICARB 50MEQ 50ML VIAL 50 ML ONE (12:19)
[2022-11-28] MEDS ORDERED: LIDOCAINE HCL 400MG/20ML VIAL ONE (12:19)
[2022-11-28] MEDS ORDERED: MIDAZOLAM HCL 1 MG/ML 2ML VIAL ONE ×2 (12:20→12:48)
[2022-11-28] MEDS ORDERED: HEPARIN 10,000 UNIT/10ML (1,000 UNIT/ML) VIAL ONE (12:20)
[2022-11-28] MEDS ORDERED: MEPERIDINE-PF 25 MG/ML SYG ONE ×2 (12:20→12:48)
[2022-11-28] MEDS ORDERED: IOHEXOL 350 MG/ML 100ML INFUS..BTL IV ONE (12:20)
[2022-11-28] MEDS ORDERED: CARVEDILOL 3.125 MG TABLET PO SCH (14:00)
[2022-11-28] MEDS: SACUBITRIL/VALSARTAN 1 EACH TABLET PO SCH (21:00)
[2022-11-28] MEDS: SIMVASTATIN 20 MG TABLET PO SCH (21:06)
[2022-11-29] VITALS: BP 152/54; PULSE 58; RESP 19
[2022-11-29 04:00] VITALS: BP 135/46; PULSE 64; RESP 17
[2022-11-29 04:20] LABS: HEMATOCRIT 44.2 % (42-54); MEAN CORPUSCULAR HEMOGLOBIN 31.6 pg (27.0-33.0); MEAN CORPUSCULAR HGB CONC 33.9 g/dL (32.0-36.0); MEAN CORPUSCULAR VOLUME 93.2 fL (79-99); RED BLOOD CELL COUNT(AUTO) 4.74 MIL/uL (4.50-6.20); RED CELL DISTRIBUTION WIDTH 13.8 % (11.0-15.5); WHITE BLOOD COUNT (AUTO) 8.4 K/uL (4.8-10.8)
[2022-11-29 04:54] LABS: ALBUMIN 3.5 g/dL (3.5-5.0); BILIRUBIN,TOTAL 0.8 mg/dL (0.2-1.0); CREATININE 1.3 mg/dL (0.5-1.5); POTASSIUM 4.1 mmol/L (3.5-5.1); TOTAL PROTEIN, SERUM 6.6 g/dL (6.0-8.3)
[2022-11-29] MEDS: INSULIN HUMULIN R 100 UNIT/ML 3ML SQ SCH ×2 (05:42→11:30)
[2022-11-29 07:00] VITALS: BP 154/61; PULSE 63; RESP 18
[2022-11-29 07:45] VITALS: O2SAT 98
[2022-11-29] MEDS ORDERED: SACU1TAB7 PO (08:12)
[2022-11-29] MEDS: ASPIRIN 81 MG EC TAB PO SCH (09:00)
[2022-11-29] MEDS: METOPROLOL TARTRATE 25 MG TAB PO SCH (09:01)
[2022-11-29] MEDS: SACUBITRIL/VALSARTAN 1 EACH TABLET PO SCH (09:01)
[2022-11-29] MEDS: FUROSEMIDE 40 MG TABLET PO SCH (09:01)
[2022-11-29] MEDS: KCL 20 MEQ ERTAB PO SCH (09:01)
[2022-11-29] MEDS: FAMOTIDINE 20MG TAB PO SCH (09:01)
[2022-11-29] MEDS: SPIRONOLACTONE 25 MG TAB PO SCH (09:01)
[2022-11-29 11:00] VITALS: BP 142/65; PULSE 67; RESP 20
== END 2022-11-29 12:20 | disposition home or self-care (01) | DRG 280 ==
LOC: EDH 19:31 → OBSVTOIN 22:24 → EDHIP 22:24 → 2DH 11-24 14:01
PROVIDERS: ADMIT Internal Medicine Critical Care Medicine; ATTEND Internal Medicine Critical Care Medicine
PROC: 4A023N8 Measurement of Cardiac Sampling and Pressure, Bilateral, Percutaneous Approach (ICD-10-PCS; principal; 2022-11-28)
PROC: B2111ZZ Fluoroscopy of Multiple Coronary Arteries using Low Osmolar Contrast (ICD-10-PCS; 2022-11-28)
PROC: B3101ZZ Fluoroscopy of Thoracic Aorta using Low Osmolar Contrast (ICD-10-PCS; 2022-11-28)
DX: I21.4 Non-ST elevation (NSTEMI) myocardial infarction (principal); I50.43 Acute on chronic combined systolic (congestive) and diastolic (congestive) heart failure; J96.01 Acute respiratory failure with hypoxia; I47.20 Ventricular tachycardia, unspecified; I11.0 Hypertensive heart disease with heart failure; I25.110 Atherosclerotic heart disease of native coronary artery with unstable angina pectoris; R79.89 Other specified abnormal findings of blood chemistry; E11.65 Type 2 diabetes mellitus with hyperglycemia; E78.5 Hyperlipidemia, unspecified; G47.33 Obstructive sleep apnea (adult) (pediatric); E66.01 Morbid (severe) obesity due to excess calories; E83.42 Hypomagnesemia; I35.2 Nonrheumatic aortic (valve) stenosis with insufficiency; F41.9 Anxiety disorder, unspecified; I16.0 Hypertensive urgency; I25.5 Ischemic cardiomyopathy; J44.9 Chronic obstructive pulmonary disease, unspecified; Z79.02 Long term (current) use of antithrombotics/antiplatelets; Z68.34 Body mass index [BMI] 34.0-34.9, adult; Z95.5 Presence of coronary angioplasty implant and graft; I25.2 Old myocardial infarction; Z79.82 Long term (current) use of aspirin; Z79.899 Other long term (current) drug therapy; Z82.49 Family history of ischemic heart disease and other diseases of the circulatory system; Z86.79 Personal history of other diseases of the circulatory system; Z87.891 Personal history of nicotine dependence; Z91.199 Patient's noncompliance with other medical treatment and regimen due to unspecified reason
CPT/HCPCS: 36415; 36600; 71045; 80048; 80053; 80061; 82550; 82803; 82948; 83735; 83874; 83880; 84100; 84145; 84443; 84484; 85025; 85027; 85378; 85610; 85730; 93005; 93306; 93356; 93460; 93567; 93970; 99156; 99157; 99291; C1760; C1769; C1893; C1894; G0378; J0360; J1200; J1644; J1650; J1940; J2175; J2250; J2405; J3475; J3490; Q9967; Q9965

== ENCOUNTER → 2023-01-23 | Outpatient (CLI) | payer OTHER ==
[~2023-01-23] MED LIST changes: -AMLO10TA4 PO; -LISI20TA24 PO; +SACU1TAB7 PO
[2023-01-23 16:33] LABS: BASOPHILS # (AUTO) 0.05 K/uL (0.00-0.20); BASOPHILS % (AUTO) 0.5 % (0.0-5.0); EOSINOPHILS # (AUTO) 0.38 K/uL (0.00-0.70); HEMATOCRIT 42.9 % (42-54); IMMATURE GRANULOCYTE ABSOLUTE 0.03 K/uL (0-1); LYMPHOCYTES # (AUTO) 3.1 K/uL (1.0-4.8); MEAN CORPUSCULAR HEMOGLOBIN 31.2 pg (27.0-33.0); MEAN CORPUSCULAR HGB CONC 33.8 g/dL (32.0-36.0); MEAN CORPUSCULAR VOLUME 92.3 fL (79-99); MONOCYTES # (AUTO) 0.8 K/uL (0.1-1.0); MONOCYTES % (AUTO) 8.3 % (3.0-13.0); NEUTROPHILS # (AUTO) 5.1 K/uL (1.8-7.7); NEUTROPHILS % (AUTO) 53.9 % (40.0-77.0); PLATELET COUNT (AUTO) 219 K/uL (130-400); RED BLOOD CELL COUNT(AUTO) 4.65 MIL/uL (4.50-6.20); RED CELL DISTRIBUTION WIDTH 14.4 % (11.0-15.5); WHITE BLOOD COUNT (AUTO) 9.5 K/uL (4.8-10.8)
[2023-01-23 16:54] LABS: ALBUMIN 3.7 g/dL (3.5-5.0); BILIRUBIN,TOTAL 0.4 mg/dL (0.2-1.0); CREATININE 1.2 mg/dL (0.5-1.5); POTASSIUM 4.5 mmol/L (3.5-5.1); TOTAL PROTEIN, SERUM 6.8 g/dL (6.0-8.3)
== END | disposition home or self-care (01) ==
LOC: LAB 13:11
PROVIDERS: ATTEND Internal Medicine Cardiovascular Disease
DX: I10 Essential (primary) hypertension (principal); E78.5 Hyperlipidemia, unspecified
CPT/HCPCS: 36415; 80053; 83735; 83880; 85025

== ENCOUNTER → 2023-01-27 | Outpatient (CLI) | payer OTHER ==
[~2023-01-27] MED LIST changes: +REGADENOSON 0.4 MG/5 ML PF SYG IVP ONE
== END | disposition home or self-care (01) ==
LOC: SHCH 07:32
PROVIDERS: ATTEND Internal Medicine Cardiovascular Disease
DX: I11.9 Hypertensive heart disease without heart failure (principal); R07.9 Chest pain, unspecified
CPT/HCPCS: 78452; 93017; J2785; A9500 ×2; 96374

== ENCOUNTER 2023-04-02 12:56 | Emergency (ER) | payer OTHER ==
[~2023-04-02] VITALS: Ht 177.8 cm; Wt 109.8 kg
[~2023-04-02 12:56] MED LIST changes: +ALLO300T27 PO; +AMLO-257 PO; +FURO20TA4 PO; -FURO40TA5 PO; +METO25 PO; -METO25TA6 PO; +PRED20B PO; -REGADENOSON 0.4 MG/5 ML PF SYG IVP ONE; +TAMS-1; -TICA90TA PO
[2023-04-02 14:03] LABS: BASOPHILS # (AUTO) 0.01 K/uL (0.00-0.20); BASOPHILS % (AUTO) 0.2 % (0.0-5.0); EOSINOPHILS # (AUTO) 0.31 K/uL (0.00-0.70); EOSINOPHILS % (AUTO) 5.3 % (0.0-8.0); HEMATOCRIT 43.1 % (42-54); IMMATURE GRANULOCYTE ABSOLUTE 0.01 K/uL (0-1); LYMPHOCYTES # (AUTO) 2.5 K/uL (1.0-4.8); LYMPHOCYTES % (AUTO) 43.6 % (21.0-51.0); MEAN CORPUSCULAR HEMOGLOBIN 31.7 pg (27.0-33.0); MEAN CORPUSCULAR HGB CONC 35.3 g/dL (32.0-36.0); MEAN CORPUSCULAR VOLUME 89.8 fL (79-99); MONOCYTES # (AUTO) 0.7 K/uL (0.1-1.0); MONOCYTES % (AUTO) 11.6 % (3.0-13.0); NEUTROPHILS # (AUTO) 2.3 K/uL (1.8-7.7); NEUTROPHILS % (AUTO) 39.1 % (40.0-77.0); PLATELET COUNT (AUTO) 173 K/uL (130-400); RED CELL DISTRIBUTION WIDTH 14.2 % (11.0-15.5); WHITE BLOOD COUNT (AUTO) 5.8 K/uL (4.8-10.8)
[2023-04-02 14:11] LABS: CREATININE 1.2 mg/dL (0.5-1.5); POTASSIUM 4.1 mmol/L (3.5-5.1)
[2023-04-02 14:15] LABS: ALBUMIN 3.4 g/dL (3.5-5.0); BILIRUBIN,TOTAL 0.4 mg/dL (0.2-1.0); TOTAL PROTEIN, SERUM 6.8 g/dL (6.0-8.3)
[2023-04-02 14:26] LABS: INFLUENZA TYPE A Negative For Type A (NEGATIVE); INFLUENZA TYPE B Negative For Type B (NEGATIVE); SARS-CoV-2, RNA, NAAT POSITIVE SARS CoV-2 (NEGATIVE)
[2023-04-02 15:11] VITALS: BP 152/45; PULSE 74; RESP 18; O2SAT 97
[2023-04-02] MEDS ORDERED: ALBU18HF7 IH (15:33)
[2023-04-02] MEDS ORDERED: BENZ-39 PO (15:33)
== END 2023-04-02 15:44 | disposition home or self-care (01) ==
LOC: EDH 12:56
DX: U07.1 COVID-19 (principal); I12.9 Hypertensive chronic kidney disease with stage 1 through stage 4 chronic kidney disease, or unspecified chronic kidney disease; N18.9 Chronic kidney disease, unspecified; E78.00 Pure hypercholesterolemia, unspecified; J18.9 Pneumonia, unspecified organism; F17.200 Nicotine dependence, unspecified, uncomplicated; Z79.82 Long term (current) use of aspirin; Z79.899 Other long term (current) drug therapy; Z98.890 Other specified postprocedural states
CPT/HCPCS: 36415; 71045; 80053; 84484; 85025; 87635; 87804; 93005

== ENCOUNTER → 2023-08-18 | Outpatient (CLI) | payer OTHER ==
[~2023-08-18] MED LIST changes: -AMLO-257 PO; +DOXY100C5 PO; +GUAI5SYR PO; +IPRNEB IH; +OSEL75 PO; -PRED20B PO; -SPIR25TA PO
== END | disposition home or self-care (01) ==
LOC: RAH 11:09
PROVIDERS: ATTEND Family Medicine
DX: G31.84 Mild cognitive impairment of uncertain or unknown etiology (principal)
CPT/HCPCS: 70450

== ENCOUNTER → 2023-08-29 | Outpatient (CLI) | payer OTHER | END | disposition home or self-care (01) | LOC: SHCH 09:51 | PROVIDERS: ATTEND Internal Medicine Cardiovascular Disease | DX: I65.23 Occlusion and stenosis of bilateral carotid arteries (principal); R06.00 Dyspnea, unspecified | CPT/HCPCS: 93880 ==

== ENCOUNTER → 2024-02-07 | Outpatient (CLI) | payer OTHER ==
[~2024-02-07] MED LIST changes: +ASCO500T20 PO; +ATOR40TA69 PO; -DOXY100C5 PO; +FERR324T4 PO; -FURO20TA4 PO; +FURO20TA6 PO; -GUAI5SYR PO; -METO25 PO; +METO50 PO; -OSEL75 PO; -ROSU20TA73 PO; -TAMS-1; +TAMS-1 PO
[2024-02-07 16:47] LABS: ALBUMIN 3.6 g/dL (3.5-5.0); BILIRUBIN,TOTAL 0.3 mg/dL (0.2-1.0); CREATININE 1.2 mg/dL (0.5-1.3); MAGNESIUM 1.8 mg/dL (1.80-2.40); POTASSIUM 4.6 mmol/L (3.5-5.1); TOTAL PROTEIN, SERUM 6.7 g/dL (6.0-8.3)
== END | disposition home or self-care (01) ==
LOC: LAB 15:17
PROVIDERS: ATTEND Nurse Practitioner Acute Care
DX: I10 Essential (primary) hypertension (principal); E78.5 Hyperlipidemia, unspecified
CPT/HCPCS: 36415; 80053; 83735; 83880

== ENCOUNTER → 2024-02-10 | Outpatient (CLI) | payer OTHER ==
--- NOTE | 2024-02-11 22:24 | HMCSR ---
APPROVED REPORT EXAM: Two-dimensional and M-mode echocardiogram with Doppler and color Doppler. INDICATION ICD: I10.0 Essential (primary) Hypertension 2D Dimensions RVDd3.8 cmIVC diam1.9 cmLVED Vol(simp.)170.0 mL IVSd1.6 (0.7-1.1cm)LVES Vol(simp.)99.0 mL PWd1.5 (0.7-1.1cm)LVEF(%, simp.)42 % LA ESV INDEX (BP)30.71 mL/m2 Aortic Valve AoV Vmax2.8 m/Sudeep Peak GR32.4 mmHgLVOT Vmax1.4 m/s AoV VTI0.5 mAo Mean GR18.5 mmHgLVOT VTI0.21 m Mitral Valve MV E Vmax70.8 cm/sDECEL Zlne018 ms MV A Vmax98.2 cm/sP 1/2 T48 ms E/A ratio0.7MVA (PHT)4.6 cm2 TDI E/E' Medial9.6E/E' Lateral9.6 Pulmonary Valve PV Vmax1.5 m/sPV VTI0.29 mPV Mean GR5 mmHg PV Peak GR9.5 mmHg Tricuspid Valve TR Vmax2.0 m/sRAP (EST) 8 kxGvKZZL59.7 mmHg TR Peak GR15.7 mmHg Left Ventricle The left ventricle is dilated. Anteroseptal and anteroapical hypokinesis. There is moderate concentri c left ventricular hypertrophy. LVEF is 40-45%. Grade 1 diastolic dysfunction Right Ventricle The right ventricle is normal size. The right ventricular systolic function is normal. Atria The left atrium size is normal. The right atrium size is normal. Aortic Valve Bioprosthetic aortic valve is present. Prosthetic aortic valve is normal in appearance and well seate d. Trace aortic regurgitation. AV Dimensionless Index is 0.46 Maximum pressure gradient of 32.4 mmHg and mean pressure gradient of 18.5 mmHg. Mitral Valve Mitral valve leaflets are mildly sclerotic but open well. Mitral annular calcification is mild. Paulina l regurgitation is trace. There is no mitral valve stenosis. Tricuspid Valve The tricuspid valve leaflets appear normal. There is trace tricuspid regurgitation. Pulmonic Valve Pulmonic valve is not well visualized. Great Vessels The aortic root is normal in size. IVC is dilated and collapses >50% with inspiration. Pericardium No pericardial effusion. Conclusion The left ventricle is dilated. There is mild to moderate concentric left ventricular hypertrophy. The left atrium size is normal. The left ventricle is dilated. There is moderate concentric left ventricular hypertrophy. Anteroseptal and anteroapical hypokinesis. LVEF is 40-45%. Grade 1 diastolic dysfunction Bioprosthetic aortic valve is present. Prosthetic aortic valve is normal in appearance and well seated. Maximum pressure gradient of 32.4 mmHg and mean pressure gradient of 18.5 mmHg. Trace aortic regurgitation. No pericardial effusion.
== END | disposition home or self-care (01) ==
LOC: SHCH 10:32
PROVIDERS: ATTEND Internal Medicine Cardiovascular Disease
DX: I34.81 Nonrheumatic mitral (valve) annulus calcification (principal); I11.9 Hypertensive heart disease without heart failure; Z95.3 Presence of xenogenic heart valve
CPT/HCPCS: 93306

== ENCOUNTER → 2024-02-22 | Outpatient (CLI) | payer OTHER ==
[2024-02-22 18:35] LABS: ALBUMIN 3.8 g/dL (3.5-5.0); BILIRUBIN,TOTAL 0.4 mg/dL (0.2-1.0); CREATININE 1.2 mg/dL (0.5-1.3); POTASSIUM 4.2 mmol/L (3.5-5.1); TOTAL PROTEIN, SERUM 7.2 g/dL (6.0-8.3)
== END | disposition home or self-care (01) ==
LOC: LAB 14:59
PROVIDERS: ATTEND Nurse Practitioner Acute Care
DX: R07.9 Chest pain, unspecified (principal)
CPT/HCPCS: 36415; 80053; 83880

== ENCOUNTER → 2024-03-06 | Outpatient (CLI) | payer OTHER ==
[2024-03-06 16:32] LABS: ALBUMIN 3.3 g/dL (3.5-5.0); BILIRUBIN,TOTAL 0.2 mg/dL (0.2-1.0); CREATININE 1.2 mg/dL (0.5-1.3); MAGNESIUM 1.7 mg/dL (1.80-2.40); POTASSIUM 3.9 mmol/L (3.5-5.1); TOTAL PROTEIN, SERUM 6.6 g/dL (6.0-8.3)
== END | disposition home or self-care (01) ==
LOC: LAB 14:00
PROVIDERS: ATTEND Internal Medicine Cardiovascular Disease
DX: I11.0 Hypertensive heart disease with heart failure (principal); I50.22 Chronic systolic (congestive) heart failure
CPT/HCPCS: 36415; 80053; 83735

== ENCOUNTER → 2024-03-09 | Outpatient (CLI) | payer OTHER ==
--- NOTE | 2024-03-26 08:47 | HMCSR ---
APPROVED REPORT EXAM: Two-dimensional and M-mode echocardiogram with Doppler and color Doppler. INDICATION ICD: I10 Essential hypertension 2D Dimensions RVDd2.9 cmLVEF(%)45.0 (>50%)LVED Vol(simp.)141.0 mL IVSd1.6 (0.7-1.1cm)FS(%)24 %LVES Vol(simp.)77.6 mL LVDd5.8 (3.8-5.6cm)LVEF(%, simp.)45 % PWd1.4 (0.7-1.1cm)LA ESV INDEX (4CH)24.00 mL/m2 IVSs1.7 cmLA ESV INDEX (2CH)24.90 mL/m2 LVDs4.4 (2.5-4.0cm)LA ESV INDEX (BP)25.70 mL/m2 PWs1.6 cm Aortic Valve AoV Vmax2.4 m/Sudeep Peak GR23.0 mmHgLVOT VTI0.16 m AoV VTI0.4 mAo Mean GR12.0 mmHg Mitral Valve MV E Vmax68.4 cm/sDECEL Nvqd598 ms MV A Snjt415.3 cm/sP 1/2 T48 ms E/A ratio0.7MVA (PHT)4.6 cm2 TDI E/E' Xkcsjv82.7E/E' Jepfwtw07.0 Medial E' Peak V3.30 cm/sLateral E' Peak V6.20 cm/s Pulmonary Valve PV Vmax1.0 m/s PV Peak GR4.3 mmHg Tricuspid Valve RAP (EST) 3 mmHgRVSP3.0 mmHg Left Ventricle Left ventricular cavity size is normal. Moderate concentric left ventricular hypertrophy. LVEF is 40- 45%. No left ventricle thrombus noted on this study. Stage I diastolic dysfunction. Right Ventricle The right ventricle is normal size. The right ventricular systolic function is normal. Atria The left atrium size is normal. The right atrium size is normal. Aortic Valve Bioprosthetic aortic valve is present. No aortic regurgitation is present. Bioprosthetic aortic valve pk gradient 23.0mmHg and mean gradient 12mmHg, consistent with mild bio-prodthetic aortic stenosis.. Mitral Valve The mitral valve is mildly thickened and sclerotic and opens well. There is no mitral valve regurgita tion noted. There is no mitral valve stenosis. Tricuspid Valve The tricuspid valve leaflets appear normal. There is trace of tricuspid valve regurgitation noted. Pulmonic Valve Pulmonic valve is not well visualized. There is no pulmonic valvular regurgitation. Great Vessels The aortic root is normal in size. IVC is normal in size and collapses >50% with inspiration. Pericardium No pericardial effusion. Other Information Quality : Fair Conclusion Left ventricular cavity size is normal. Moderate concentric left ventricular hypertrophy. LVEF is 40-45%. Stage I diastolic dysfunction. No left ventricle thrombus noted on this study. The right ventricle is normal size. The left atrium size is normal. Bioprosthetic aortic valve is present. Bioprosthetic aortic valve pk gradient 23.0mmHg and mean gradient 12mmHg, consistent with mild bio-pr odthetic aortic stenosis.. No aortic regurgitation is present. The mitral valve is mildly thickened and sclerotic and opens well. There is no mitral valve regurgitation noted. There is trace of tricuspid valve regurgitation noted. There is no pulmonic valvular regurgitation. The aortic root is normal in size. IVC is normal in size and collapses >50% with inspiration. No pericardial effusion.
== END | disposition home or self-care (01) ==
LOC: SHCH 07:44
PROVIDERS: ATTEND Internal Medicine Cardiovascular Disease
DX: I34.0 Nonrheumatic mitral (valve) insufficiency (principal); I11.9 Hypertensive heart disease without heart failure; Z95.3 Presence of xenogenic heart valve
CPT/HCPCS: 93306

== ENCOUNTER → 2024-03-19 | Outpatient (CLI) | payer OTHER ==
--- NOTE | 2024-03-13 07:13 | HMCSR ---
APPROVED REPORT EXAM: Two-dimensional and M-mode echocardiogram with Doppler and color Doppler. INDICATION ICD: I10 Essential hypertension 2D Dimensions RVDd2.9 cmLVEF(%)45.0 (>50%)LVED Vol(simp.)141.0 mL IVSd1.6 (0.7-1.1cm)FS(%)24 %LVES Vol(simp.)77.6 mL LVDd5.8 (3.8-5.6cm)LVEF(%, simp.)45 % PWd1.4 (0.7-1.1cm)LA ESV INDEX (4CH)24.00 mL/m2 IVSs1.7 cmLA ESV INDEX (2CH)24.90 mL/m2 LVDs4.4 (2.5-4.0cm)LA ESV INDEX (BP)25.70 mL/m2 PWs1.6 cm Aortic Valve AoV Vmax2.4 m/Sudeep Peak GR23.0 mmHgLVOT VTI0.16 m AoV VTI0.4 mAo Mean GR12.0 mmHg Mitral Valve MV E Vmax68.4 cm/sDECEL Aftg613 ms MV A Qwjl141.3 cm/sP 1/2 T48 ms E/A ratio0.7MVA (PHT)4.6 cm2 TDI E/E' Bzlfhr29.7E/E' Hmvbhpp73.0 Medial E' Peak V3.30 cm/sLateral E' Peak V6.20 cm/s Pulmonary Valve PV Vmax1.0 m/s PV Peak GR4.3 mmHg Tricuspid Valve RAP (EST) 3 mmHgRVSP3.0 mmHg Left Ventricle Left ventricular cavity size is normal. Moderate concentric left ventricular hypertrophy. LVEF is 40- 45%. No left ventricle thrombus noted on this study. Stage I diastolic dysfunction. Right Ventricle The right ventricle is normal size. The right ventricular systolic function is normal. Atria The left atrium size is normal. The right atrium size is normal. Aortic Valve Bioprosthetic aortic valve is present. No aortic regurgitation is present. Bioprosthetic aortic valve pk gradient 23.0mmHg and mean gradient 12mmHg, consistent with mild bio-prodthetic aortic stenosis.. Mitral Valve The mitral valve is mildly thickened and sclerotic and opens well. There is no mitral valve regurgita tion noted. There is no mitral valve stenosis. Tricuspid Valve The tricuspid valve leaflets appear normal. There is trace of tricuspid valve regurgitation noted. Pulmonic Valve Pulmonic valve is not well visualized. There is no pulmonic valvular regurgitation. Great Vessels The aortic root is normal in size. IVC is normal in size and collapses >50% with inspiration. Pericardium No pericardial effusion. Other Information Quality : Fair Conclusion Left ventricular cavity size is normal. Moderate concentric left ventricular hypertrophy. LVEF is 40-45%. Stage I diastolic dysfunction. No left ventricle thrombus noted on this study. The right ventricle is normal size. The left atrium size is normal. Bioprosthetic aortic valve is present. Bioprosthetic aortic valve pk gradient 23.0mmHg and mean gradient 12mmHg, consistent with mild bio-pr odthetic aortic stenosis.. No aortic regurgitation is present. The mitral valve is mildly thickened and sclerotic and opens well. There is no mitral valve regurgitation noted. There is trace of tricuspid valve regurgitation noted. There is no pulmonic valvular regurgitation. The aortic root is normal in size. IVC is normal in size and collapses >50% with inspiration. No pericardial effusion.
[~2024-03-19] MED LIST changes: +IOHEXOL-350 75 ML VIAL IV ONE
--- NOTE | 2024-03-19 12:01 | HMCIMG ---
CT CHEST W/WO CONTRAST REASON: Chronic systolic (congestive) heart failure COMPARISON: 05/08/2023 TECHNIQUE: Multiple sequential axial images of the chest were obtained from the thoracic inlet through the upper pole of the kidneys without intravenous contrast administration. FINDINGS: Lungs are clear. There are no focal masses or infiltrates. There is normal-appearing pulmonary interstitial pattern. There are no pleural effusions. There is borderline heart size. There is no pulmonary vascular congestion. There is no hilar or mediastinal lymphadenopathy. There has been a previous median sternotomy. Chest wall structures appear otherwise normal as do visualized upper abdominal structures. IMPRESSION: Negative unenhanced CT chest. CT was performed with one or more following dose reduction techniques: automated exposure control, adjustment of the mA and kv according to patient's size, or use of a iterative reconstruction technique.
== END | disposition home or self-care (01) ==
LOC: RAH 10:03
PROVIDERS: ATTEND Internal Medicine Cardiovascular Disease
DX: I34.0 Nonrheumatic mitral (valve) insufficiency (principal); I11.0 Hypertensive heart disease with heart failure; I50.22 Chronic systolic (congestive) heart failure; I25.10 Atherosclerotic heart disease of native coronary artery without angina pectoris
CPT/HCPCS: 93306; 71270; Q9967

== ENCOUNTER 2024-12-14 17:08 | Observation (INO) | payer OTHER ==
[~2024-12-14] VITALS: Ht 170.2 cm; Wt 115.5 kg
[~2024-12-14 17:08] MED LIST changes: -IOHEXOL-350 75 ML VIAL IV ONE; -TAMS-1 PO; +TAMS-55 PO
--- NOTE | 2024-12-14 17:30 | ERN ---
General Chief Complaint: Mechanical Fall Stated Complaint: FALL Time Seen by MD: 17:14 Time Seen by Midlevel: 17:14 History of Present Illness Initial Comments 79 y/o male came in for fall. HE was in sitting position and fell face forward. HE has been feeling dizzy since the fall. Allergies: Coded Allergies: No Known Drug Allergies (Verified Allergy, Unknown, 09/16/15) Home Meds Active Scripts Tamsulosin HCl (Flomax) 0.4 Mg Cap.er.24h, 0.4 MG PO DAILY, #30 CAPSULE.DR 1 Refill Prov:CONNIE SALES [facility] 01/12/24 Sacubitril/Valsartan (Entresto 49 mg-51 mg Tablet) 49 Mg-51 Mg Tablet, 1 EACH PO BID, #60 TAB 1 Refill Prov:CONNIE SALES [facility] 01/12/24 Metoprolol Tartrate (Lopressor 50Mg Tab) 50 Mg Tab, 50 MG PO BID, #60 TAB 1 Refill Prov:CONNIE SALES [facility] 01/12/24 Furosemide (Lasix 20Mg Tab) 20 Mg Tablet, 20 MG PO Q12H, #60 TAB Prov:CONNIE SALES [facility] 01/12/24 Ferrous Sulfate (Ferrous Sulfate) 324 Mg (65 Mg Iron) Tablet.dr, 325 MG PO DAILY, #30 TAB 0 Refills Prov:CONNIE SALES [facility] 01/12/24 Atorvastatin Calcium (LIPITOR) 40 Mg Tablet, 40 MG PO AM, #30 TAB 1 Refill Prov:CONNIE SALES [facility] 01/12/24 Ascorbic Acid (Vitamin C) 500 Mg Tablet, 500 MG PO DAILY, #30 TAB 0 Refills Prov:CONNIE SALES [facility] 01/12/24 Ipratropium Lapel (Atrovent Neb Soln) 0.2 Mg/Ml (0.02 %) Soln, 0.5 MG IH Q6H for 7 Days, #1 BOX Prov:SHILPA PRITCHARD PAC 05/12/23 Allopurinol (Zyloprim) 300 Mg Tablet, 300 MG PO DAILY for 30 Days, #30 TAB Prov:SANTOSH PETERSON [employer] 02/12/23 Reported Medications Nitroglycerin (Nitroglycerin) 0.4 Mg Tab.subl, 0.4 MG SL STAT PRN for CHEST PAIN, TAB.SL 02/15/22 Aspirin (Aspir 81) 81 Mg Tablet.dr, 81 MG PO DAILY, TAB 01/16/15 Past Medical History Past Medical History: CHF, High Cholesterol, Heart Disease, Hypertension, Other Medical History Other: GOUT Past Surgical History: Other Surgical History Other: PROSTATE SX, LT KNEE SX Family History Family History: CAD, HTN Social History Social History: Smokers, Lives with family Results Laboratory and Microbiology Lab and Micro Result Laboratory Tests Test 12/14/24 17:26 White Blood Count 9.4 K/uL (4.8-10.8) Red Blood Count 5.25 MIL/uL (4.50-6.20) Hemoglobin 16.7 g/dL (14.0-18.0) Hematocrit 47.1 % (42-54) Mean Corpuscular Volume 89.7 fL (79-99) Mean Corpuscular Hemoglobin 31.8 pg (27.0-33.0) Mean Corpuscular Hemoglobin Concent 35.5 g/dL (32.0-36.0) Red Cell Distribution Width 14.9 % (11.0-15.5) Platelet Count 174 K/uL (130-400) Mean Platelet Volume 9.3 fL (7.5-10.5) Immature Granulocyte % (Auto) 0.4 % (0-1) Neutrophils (%) (Auto) 69.0 % (40.0-77.0) Lymphocytes (%) (Auto) 17.9 % (21.0-51.0) L Monocytes (%) (Auto) 7.3 % (3.0-13.0) Eosinophils (%) (Auto) 4.7 % (0.0-8.0) Basophils (%) (Auto) 0.7 % (0.0-5.0) Neutrophils # (Auto) 6.5 K/uL (1.8-7.7) Lymphocytes # (Auto) 1.7 K/uL (1.0-4.8) Monocytes # (Auto) 0.7 K/uL (0.1-1.0) Eosinophils # (Auto) 0.44 K/uL (0.00-0.70) Basophils # (Auto) 0.07 K/uL (0.00-0.20) Absolute Immature Granulocyte (auto 0.04 K/uL (0-1) Nucleated Red Blood Cells 0.0 % (0.0-0.19) Sodium Level 145 mmol/L (136-145) Potassium Level 4.2 mmol/L (3.5-5.1) Chloride Level 109 mmol/L (101-111) Carbon Dioxide Level 26 mmol/L (21-32) Blood Urea Nitrogen 25 mg/dL (7-18) H Creatinine 1.5 mg/dL (0.5-1.3) H Glomerular Filtration Rate Calc 47 mL/min (>90) Random Glucose 132 mg/dL (70-105) H Total Calcium 8.7 mg/dL (8.5-10.1) Troponin I High Sensitivity 53 ng/L (4-75) REASON: Headache s/p fall ORDERING PHYSICIAN: MAGUE LARA MD PROCEDURE: C SPIN WO - CT CERVICAL SPINE W/O CONTRAST CT CERVICAL SPINE WITHOUT IV CONTRAST Clinical Details: Headache, post-fall Technique: Axial CT of the cervical spine without intravenous contrast was performed with sagittal and coronal reformats. Findings: Alignment: Preserved cervical alignment is noted with no evidence of dislocation or subluxation. Vertebrae: No acute fracture or lytic lesion is identified. Mild central wedging of the T3 and T4 vertebral bodies is observed, with height loss of approximately 20%, consistent with degenerative changes. Disc Spaces: There is reduced disc space height from C3???C4 through C6???C7 accompanied by anterior and posterior marginal osteophytes. Facets and Uncovertebral Joints: Severe degenerative arthropathy is present from C3???C4 through C7???T1, more pronounced on the left side, resulting in left-predominant neural foraminal stenosis. Canal: Disc-osteophyte complexes from C3???C4 through C7???T1 indent the thecal sac, causing grade II central canal stenosis. Atlanto-axial Joint: Severe degenerative osteoarthritis is noted with joint space narrowing and sclerosis. Thoracic Spine: Evidence of degenerative thoracic spondylosis is present. Soft Tissues: Prevertebral soft tissues are within normal limits without abnormal swelling or hematoma. Impression: * Severe multilevel cervical spondylosis from C3 to T1 with disc-osteophyte complexes causing grade II central canal stenosis and left-predominant neural foraminal stenosis. 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 * No acute fracture or subluxation identified. * Mild chronic central wedging of the T3 and T4 vertebral bodies with approximately 20% height loss. * Degenerative thoracic spondylosis. /Exchange REASON: Headache s/p fall ORDERING PHYSICIAN: MAGUE LARA MD PROCEDURE: HEAD WO - CT HEAD/BRAIN W/O CONTRAST EXAM: CT Head Without IV contrast. CLINICAL HISTORY: Headache s/p fall TECHNIQUE: Axial computed tomography images of the head/brain without intravenous contrast. COMPARISON: None provided. FINDINGS: BRAIN: No acute bleed or infarct. Chronic ischemic and atrophic changes. VENTRICLES: No hydrocephalus. ORBITS: The orbits are unremarkable. SINUSES AND MASTOIDS: The paranasal sinuses and mastoid air cells are clear. BONES: No fracture. SOFT TISSUES: Unremarkable. IMPRESSION: No acute bleed or infarct. Chronic ischemic and atrophic changes. /Exchange Labs Reviewed?: Yes EKG/XRAY/US/CT/MRI EKG: (+) NSR (Sinus rhythm) EKG Comment Date:12/14/24 Time:1736 Ventricular rate:57 MI interval:333 QRS duration:97 QT/QTc:469/456 EKG interpretation: Sinus rhythm, prolonged MI, abnormal T-wave Reviewed by ED Attending no STEMI MDM MDM: The patient is an 79-year-old male with a history of hypertension, CHF, CABG, CAD on Eliquis who presents to the emergency department with complaints of a fall. Patient reports he was sitting down when he had an episode of dizziness causing him to fall forward and hitting the frontal part of his head. Patient denies any LOC. Fall was not witnessed. Patient develop an episode of nonbloody vomiting after the fall. Patient reports he was having dizziness for the past three months on and off. Patient otherwise denies any chest pain, back pain, abdominal pain or any current complaints. CBC showed no leukocytosis, no anemia, chemistry showed creatinine of 1.5, slightly increased from previous visit, no other electrolyte abnormality, negative troponin. CT head showed no acute pathology. Differential diagnosis: Intracerebral hemorrhage, concussion, electrolyte imbalance, dehydration, ACS, tachyarrhythmia Comorbidities: Hypertension, CHF, CABG, CAD Tests considered and not ordered secondary to shared decision making include: none Previous outside records reviewed: none Risk of complication and/or morbidity or mortality of patient management: The patient meets criteria for admission. Need for emergency major/minor surgery: No There are no social concerns with this patient. I independently interpreted the tests I ordered (labs, urinalysis, etc.). I discussed the case with the hospitalist for admission. Melva WALDEN who accepts admission I discussed the case with the following specialists: none. Historian: pateint. I independently interpreted imaging studies and EKGs that I ordered (US, CT, XR, EKG, etc.). External chart review: none. Medical management and examination interpretation discussions were had by me with other qualified healthcare professionals as indicated for the patient's care. ED Course Orders Procedure Category Date Status Time 12 Lead Ekg Tracing- EKG 12/14/24 Logged Technical 17:21 Cbc With Differential LAB 12/14/24 Complete 17:21 Basic Metabolic Panel LAB 12/14/24 Complete 17:21 Troponin I High LAB 12/14/24 Complete Sensitivity 17:21 Urinalysis LAB 12/14/24 Logged W/Microscopic 17:21 Ct Head/Brain W/O CT 12/14/24 Resulted Contrast 17:21 Ct Cervical Spine W/O CT 12/14/24 Resulted Contrast 17:21 Edm Admit Bridge Order ADM 12/14/24 Transmitted 18:53 Vital Signs Date Time Temp Pulse Resp B/P (MAP) Pulse Ox O2 Delivery O2 Flow Rate FiO2 12/14/24 17:10 98.8 60 16 172/92 98 Room Air DX & DISP Disposition: Inpatient Decision to Admit Date: Dec 14, 2024 Decision to Admit Time: 19:02 Departure Impression: Primary Impression: Dizzy Additional Impression: Fall Condition: Stable Referrals: BRIGIDA NAGEL MD (PCP) I have examined patient, & reviewed all documents, & agreed W/ the Diagnosis, and Plan MAGUE LARA MD Dec 14, 2024 17:30 ANTONETTE MONDRAGON Dec 14, 2024 18:40
[2024-12-14 17:35] LABS: IMMATURE GRANULOCYTE ABSOLUTE 0.04 K/uL (0-1); NUCLEATED RED BLOOD CELLS 0.0 % (0.0-0.19); PLATELET COUNT (AUTO) 174 K/uL (130-400); RED BLOOD CELL COUNT(AUTO) 5.25 MIL/uL (4.50-6.20); RED CELL DISTRIBUTION WIDTH 14.9 % (11.0-15.5); WHITE BLOOD COUNT (AUTO) 9.4 K/uL (4.8-10.8)
[2024-12-14 17:47] LABS: CREATININE 1.5 mg/dL (0.5-1.3); GLOMERULAR FILTR. RATE CALC 47.0 mL/min (>90); GLUCOSE,RANDOM 132.0 mg/dL (70-105); SODIUM SERUM 145.0 mmol/L (136-145); UREA NITROGEN, BLOOD 25.0 mg/dL (7-18)
--- NOTE | 2024-12-14 17:52 | HMCIMG ---
EXAM: CT Head Without IV contrast. CLINICAL HISTORY: Headache s/p fall TECHNIQUE: Axial computed tomography images of the head/brain without intravenous contrast. COMPARISON: None provided. FINDINGS: BRAIN: No acute bleed or infarct. Chronic ischemic and atrophic changes. VENTRICLES: No hydrocephalus. ORBITS: The orbits are unremarkable. SINUSES AND MASTOIDS: The paranasal sinuses and mastoid air cells are clear. BONES: No fracture. SOFT TISSUES: Unremarkable. IMPRESSION: No acute bleed or infarct. Chronic ischemic and atrophic changes. /[place]
--- NOTE | 2024-12-14 18:06 | HMCIMG ---
CT CERVICAL SPINE WITHOUT IV CONTRAST Clinical Details: Headache, post-fall Technique: Axial CT of the cervical spine without intravenous contrast was performed with sagittal and coronal reformats. Findings: Alignment: Preserved cervical alignment is noted with no evidence of dislocation or subluxation. Vertebrae: No acute fracture or lytic lesion is identified. Mild central wedging of the T3 and T4 vertebral bodies is observed, with height loss of approximately 20%, consistent with degenerative changes. Disc Spaces: There is reduced disc space height from C3???C4 through C6???C7 accompanied by anterior and posterior marginal osteophytes. Facets and Uncovertebral Joints: Severe degenerative arthropathy is present from C3???C4 through C7???T1, more pronounced on the left side, resulting in left-predominant neural foraminal stenosis. Canal: Disc-osteophyte complexes from C3???C4 through C7???T1 indent the thecal sac, causing grade II central canal stenosis. Atlanto-axial Joint: Severe degenerative osteoarthritis is noted with joint space narrowing and sclerosis. Thoracic Spine: Evidence of degenerative thoracic spondylosis is present. Soft Tissues: Prevertebral soft tissues are within normal limits without abnormal swelling or hematoma. Impression: * Severe multilevel cervical spondylosis from C3 to T1 with disc-osteophyte complexes causing grade II central canal stenosis and left-predominant neural foraminal stenosis. 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 * No acute fracture or subluxation identified. * Mild chronic central wedging of the T3 and T4 vertebral bodies with approximately 20% height loss. * Degenerative thoracic spondylosis. /[place]
--- NOTE | 2024-12-14 19:05 | NUR ---
TRANSFERED CARE TO [facility] AT THIS TIME
[2024-12-14] MEDS ORDERED: LACTULOSE 20 GM/30 ML UDCUP PO PRN (20:00)
[2024-12-14] MEDS ORDERED: NITROGLYCERIN 0.4 MG SL TAB SL PRN (20:00)
[2024-12-14] MEDS ORDERED: MAG/ALUM/SIMETH 30 ML UDCUP PO PRN (20:00)
[2024-12-14] MEDS ORDERED: guaiFENesin-DM 200/20MG 10ML PO PRN (20:00)
--- NOTE | 2024-12-14 20:02 | HP ---
[facility] HISTORY & PHYSICAL Date Patient Seen: Dec 14, 2024 Time of Visit: 19:48 Supervising Physician: DR. FOREIGN COATS Primary Care Physician: BRIGIDA SCOTT Outpatient Specialists: [ ] Inpatient Consults: [ ] PROBLEM LIST: 1. Recurrent falls 2. Chronic kidney disease stage III 3. Several multilevel cervical spondylosis from C3-T1 with disc osteophyte 4. Degenerative thoracic spondylosis 5. advanced degenerative osteoarthritis 6. Neuroforaminal stenosis Chief complaint: Generalized body weakness, recurrent falls. HPI: Patient is a 79-year-old male with past medical history significant for hypertension, coronary artery disease, CHF, hyperlipidemia, gout, chronic kidney disease, and a surgical history of prostate surgery, left knee surgery, 0 two the emergency department for evaluation of recurrent falls due to generalized body weakness. Patient reports that for the past two days, he is becoming increasingly weak and has been falling very frequently. Today, patient fell and hit his head. Patient denied loss of consciousness, fever, chills, nausea, vomiting, diarrhea, dizziness, chest pain, shortness of breath, or any other symptoms. The workup performed in the emergency department shows a BUN of 25 , creatinine 1.5, GFR of 47. CT of the cervical spine shows severe multilevel cervical spondylosis from C3 to T1 with disc osteophyte complexes causing grade central canal stenosis and left predominant neural foraminal stenosis. Advanced degenerative osteoarthritis of the atlanto axial joint. No acute fracture or subluxation identified. Mild chronic central wedging of the T3 and T4 vertebral bodies with approximately 20% weight loss. Degenerative thoracic spondylosis. Patient will be admitted to medical telemetry floor for further evaluation and treatment. PAST MEDICAL HX: see above PAST SURGICAL HX: noncontributory SOCIAL HISTORY: No tobacco, ETOH, or illicit drug use Coded Allergies: No Known Drug Allergies (Verified Allergy, Unknown, 09/16/15) REVIEW OF SYSTEMS: 12 point ROS reviewed with patient. Pertinent positives mentioned above. Otherwise negative. PHYSICAL EXAM: GENERAL: alert, weak, awake oriented x 3 HEENT: EOMI, Sclera non icteric, moist mucosa NECK: Supple, no JVD, trachea midline LUNGS: Clear breath sounds bilaterally. No wheezes HEART: Regular rate and rhythm. Normal S1 and S2, without murmurs ABD: Abdomen soft, nontender. Bowel sounds present EXT: No clubbing cyanosis or edema NEURO: Alert and oriented to person, follows commands Vital Signs (last 8hr) Date Time Temp Pulse Resp B/P (MAP) Pulse Ox O2 Delivery O2 Flow Rate FiO2 12/14/24 17:10 98.8 60 16 172/92 98 Room Air LABS: Hematology Labs: Test 12/14/24 17:26 Range/Units White Blood Count 9.4 4.8-10.8 K/uL Red Blood Count 5.25 4.50-6.20 MIL/uL Hemoglobin 16.7 14.0-18.0 g/dL Hematocrit 47.1 42-54 % Mean Corpuscular Volume 89.7 79-99 fL Mean Corpuscular Hemoglobin 31.8 27.0-33.0 pg Mean Corpuscular Hemoglobin Concent 35.5 32.0-36.0 g/dL Red Cell Distribution Width 14.9 11.0-15.5 % Platelet Count 174 130-400 K/uL Mean Platelet Volume 9.3 7.5-10.5 fL Immature Granulocyte % (Auto) 0.4 0-1 % Neutrophils (%) (Auto) 69.0 40.0-77.0 % Lymphocytes (%) (Auto) 17.9 L 21.0-51.0 % Monocytes (%) (Auto) 7.3 3.0-13.0 % Eosinophils (%) (Auto) 4.7 0.0-8.0 % Basophils (%) (Auto) 0.7 0.0-5.0 % Neutrophils # (Auto) 6.5 1.8-7.7 K/uL Lymphocytes # (Auto) 1.7 1.0-4.8 K/uL Monocytes # (Auto) 0.7 0.1-1.0 K/uL Eosinophils # (Auto) 0.44 0.00-0.70 K/uL Basophils # (Auto) 0.07 0.00-0.20 K/uL Absolute Immature Granulocyte (auto 0.04 0-1 K/uL Nucleated Red Blood Cells 0.0 0.0-0.19 % Chemistry Labs: Test 12/14/24 17:26 Range/Units Sodium Level 145 136-145 mmol/L Potassium Level 4.2 3.5-5.1 mmol/L Chloride Level 109 101-111 mmol/L Carbon Dioxide Level 26 21-32 mmol/L Blood Urea Nitrogen 25 H 7-18 mg/dL Creatinine 1.5 H 0.5-1.3 mg/dL Glomerular Filtration Rate Calc 47 >90 mL/min Random Glucose 132 H 70-105 mg/dL Total Calcium 8.7 8.5-10.1 mg/dL Troponin I High Sensitivity 53 4-75 ng/L DIAGNOSTICS / RADIOLOGY RESULTS: [ ] PLAN: Admit patient medical telemetry floor PTOT evaluation and treatment Fall precautions Obtain UDS Obtain ammonia level Obtain alcohol level Obtain chest x-ray Hold all nephrotoxic drugs Start LR at 50 mL/hour 1 L only Obtain UA Acetaminophen 650 mg p.o. q.6 hours p.r.n. for back pain. 2D echo cardiology read NEURO: Minimize central acting medications as possible. Maintain fall precautions, adequate lighting during the day PULMONARY: Supplemental 02 as needed. Maintain aspiration precautions at all times CARDIOVASCULAR: Follow hemodynamics. Vital signs per facility protocol GI & NUTRITION: Continue with nutritional support. Continue stool softeners and laxatives as needed. KIDNEYS & ELECTROLYTES: Strict monitoring of intake, output and overall fluid balance. Avoid nephrotoxic medications to the extent possible. Medications to be dosed according to renal function. Monitor electrolytes and replace as needed ENDOCRINE: Maintain blood glucose between 100-180 at all times. Hypoglycemia protocol in place INFECTIOUS DISEASE: Trend temperature, WBC and procalcitonin level Follow cultures, deescalate antibiotics as soon as possible. Panculture if new onset fever ONCOLOGY/HEMATOLOGY/COAGULATION: Monitor for s/s of bleeding Monitor hemoglobin, coagulation studies as needed SKIN: Pressure ulcer prevention per facility protocol Specialty mattress ORTHO/REHAB: Continue PT/OT Prophylaxis: Continue GI and DVT prophylaxis Code Status: Full Resuscitation Disposition: TBD Other: Total patient care time exceeds 35 minutes excluding all procedures. Case discussed with Dr.Cabello Coats, and the above plan was formulated. MALCOLM SORIA Dec 14, 2024 20:02
[2024-12-14 20:17] LABS: INR 1.0 (0.85-1.15)
[2024-12-14] MEDS: LACTATED RINGERS 1000ML 1,000 ML IV SCH (20:19)
[2024-12-14 20:29] LABS: ALCOHOL, BLOOD < 3 mg/dL (0-10)
--- NOTE | 2024-12-14 20:32 | HMCIMG ---
CR CHEST, 1 VIEW Clinical Details: Shortness of breath. Technique: A single-view chest radiograph was obtained. Findings: Lungs: There is no mass, infiltrate, or acute pulmonary abnormality. Pleural Spaces: No pleural effusion or pneumothorax is identified. Mediastinum: Mild cardiomegaly with aortic ectasia is noted. Surgical clips and sutures are visible in the midline. The cardiomediastinal silhouette is otherwise within normal limits. Bones: No aggressive appearing osseous lesion is seen. IMPRESSION: 1. No acute cardiopulmonary findings. /[place]
[2024-12-14 20:48] LABS: APPEARANCE,URINE CLEAR (CLEAR); GLUCOSE, URINE (UA) 50 mg/dL (NEGATIVE); LEUKOCYTE ESTERASE ,URINE NEGATIVE Leu/uL (NEGATIVE); NITRATE,URINE NEGATIVE (NEGATIVE); OCCULT BLOOD,URINE NEGATIVE (NEGATIVE)
[2024-12-14 20:55] LABS: AMPHET/METH SCREEN,URINE NEGATIVE (NEGATIVE); BARBITURATE SCREEN, URINE NEGATIVE (NEGATIVE); CANNABINOID SCREEN,URINE NEGATIVE (NEGATIVE); COCAINE SCREEN,URINE NEGATIVE (NEGATIVE)
[2024-12-14] MEDS ORDERED: FAMOTIDINE 20MG TAB PO SCH (21:00)
--- NOTE | 2024-12-14 22:10 | NUR ---
REPORT RECEIVED FROM YASMEEN SANTILLAN NOTIFIED HIM THAT EKG ORDER FROM 1721 FROM REMAINS ACTIVE. HE STATES THAT IT HAS ALREADY BEEN COMPLETED BUT MUST HAVE NOT BEEN TRANSMITTED AND WILL TRY TO TRANSMIT IT.
[2024-12-14 22:35] VITALS: BP 137/66; PULSE 60; RESP 20; TEMP 98.2; O2SAT 98
[2024-12-14] MEDS ORDERED: APIX5TAB PO ×2 (23:27)
[2024-12-14] MEDS ORDERED: SACU1TAB4 PO (23:27)
[2024-12-14] MEDS ORDERED: FURO40TA5 PO (23:27)
[2024-12-14] MEDS ORDERED: METO-391 PO (23:27)
[2024-12-14] MEDS ORDERED: SPIR25TA6 PO (23:27)
[2024-12-14] MEDS ORDERED: VIBE75TA PO (23:27)
[2024-12-14] MEDS ORDERED: ROSU20TA98 PO (23:27)
[2024-12-15 04:00] VITALS: BP 148/82; PULSE 55; RESP 16; TEMP 98.2
--- NOTE | 2024-12-15 07:35 | EKG ---
[facility] Test Date: 2024-12-14 Test Time: 17:36:03 Pat Name: ROSA BETTENCOURT [facility] Room: 425 1 Gender: M Scheduling Coordinator: [id number] : 1945 Requested By: MAGUE LARA Order Number: [id number] Reading MD: Aide Biswas Measurements Intervals [place] Rate: 57 P: -45 IL: 333 QRS: -35 QRSD: 97 T: 127 QT: 469 QTc: 456 Interpretive Statements Sinus or ectopic atrial rhythm Prolonged IL interval Inferior infarct, old Abnrm T, consider ischemia, anterolateral lds Compared to ECG 01/04/2024 06:44:34 Ectopic atrial rhythm now present Sinus rhythm no longer present T-wave abnormality no longer present Prolonged QT interval no longer present Myocardial infarct finding still present Possible ischemia still present Electronically Signed On 12-15-2024 16:35:28 CDT by Aide Biswas Please click the below link to view image of tracing.
[2024-12-15 08:00] VITALS: BP 166/77; PULSE 56; RESP 17; TEMP 97.8
[2024-12-15] MEDS: FAMOTIDINE 20MG TAB PO SCH (09:19)
[2024-12-15 09:26] VITALS: O2SAT 97
--- NOTE | 2024-12-15 11:20 | NUR ---
DCP CM MET WITH PT INITIAL ASSESSMENT DONE. PATIENT IS INDEPENDENT PRIOR TO ADMISSION, PT AND LIVES W/DAUGHTER AT HOME. DENIES ANY EQUIPMENT/SERVICES. USES [employer] FOR MEDS. FEELS SAFE TO GO BACK HOME, DAUGHTER ABLE TO ASSIST WITH TRANSPORTATION AND NEEDS NECESSARY. DCP HOME ONCE STABLE. CM TO CONTINUE TO FOLLOW UP. Addendum: 12/15/24 at 1526 by CELENA HODGES LVN CM Amended: Links added.
[2024-12-15 12:00] VITALS: BP 156/67; PULSE 50; RESP 16; TEMP 97.6
--- NOTE | 2024-12-15 14:45 | DS ---
[facility] DISCHARGE SUMMARY Date Patient Seen: Dec 15, 2024 Time of Visit: 14:43 Supervising Physician: Dr. Spencer Primary Care Physician: BRIGIDA SCOTT Outpatient Specialists: [ ] Inpatient Consults: [ ] HOSPITAL COURSE: HPI (per admitting provider) Patient is a 79-year-old male with past medical history significant for hypertension, coronary artery disease, CHF, hyperlipidemia, gout, chronic kidney disease, and a surgical history of prostate surgery, left knee surgery, 0 two the emergency department for evaluation of recurrent falls due to generalized body weakness. Patient reports that for the past two days, he is becoming increasingly weak and has been falling very frequently. Today, patient fell and hit his head. Patient denied loss of consciousness, fever, chills, nausea, vomiting, diarrhea, dizziness, chest pain, shortness of breath, or any other symptoms. The workup performed in the emergency department shows a BUN of 25 , creatinine 1.5, GFR of 47. CT of the cervical spine shows severe multilevel cervical spondylosis from C3 to T1 with disc osteophyte complexes causing grade central canal stenosis and left predominant neural foraminal stenosis. Advanced degenerative osteoarthritis of the atlanto axial joint. No acute fracture or subluxation identified. Mild chronic central wedging of the T3 and T4 vertebral bodies with approximately 20% weight loss. Degenerative thoracic spondylosis. Patient will be admitted to medical telemetry floor for further evaluation and treatment. The patient was treated for the following problems: Patient was admitted following ground level fall at home. Patient was observed overnight, all laboratory studies within normal limits, patient with no acute findings on head CT, no fractures on radiographic workup. Patient advised at bedside have possibility of orthostatic hypotension and advised of methods to limits dizzy spells associated with hypotension. At the time of my visit patient has no longer been experiencing any of his dizzy spells. He is advised to follow up with his PCP this week for continued observation as outpatient. No further treatment indicated at this time. ACTIVE PROBLEM LIST FOR THE HOSPITALIZATION: 1. Recurrent falls CHRONIC PROBLEMS: continue previous management per PCP unless otherwise indicated 2. Chronic kidney disease stage III 3. Several multilevel cervical spondylosis from C3-T1 with disc osteophyte 4. Degenerative thoracic spondylosis 5. advanced degenerative osteoarthritis 6. 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 PCP notified of patients admission, hospital course and discharge. PHYSICAL EXAM: GENERAL: alert, weak, awake oriented x 3 HEENT: EOMI, Sclera non icteric, moist mucosa NECK: Supple, no JVD, trachea midline LUNGS: Clear breath sounds bilaterally. No wheezes HEART: Regular rate and rhythm. Normal S1 and S2, without murmurs ABD: Abdomen soft, nontender. Bowel sounds present EXT: No clubbing cyanosis or edema NEURO: Alert and oriented to person, follows commands FOLLOW-UP: Follow-up with PCP in 2-3 days RECOMMENDATIONS: See Discharge Instructions This case was seen and discussed with my supervising physician. More than 30 minutes spent on discharge process, including evaluation of the patient, discussion with nursing staff, medication reconciliation and follow-up appointments NASEEM MOHR PAC Dec 15, 2024 14:45
--- NOTE | 2024-12-15 15:03 | HMCSR ---
APPROVED REPORT EXAM: Two-dimensional and M-mode echocardiogram with Doppler and color Doppler. INDICATION ICD: Recurrent falls 2D Dimensions RVDd3.3 cmLVEF(%)20.5 (>50%)LVED Vol(simp.)144.0 mL IVSd1.3 (0.7-1.1cm)FS(%)9 %LVES Vol(simp.)88.0 mL LVDd4.3 (3.8-5.6cm)LVOT diam2.2 (1.8-2.4cm)LVEF(%, simp.)38 % PWd0.7 (0.7-1.1cm)LA ESV INDEX (BP)31.05 mL/m2 IVSs1.3 cm LVDs3.9 (2.5-4.0cm) PWs0.8 cm Deformation Strain Apical 4-10.9 % Apical 2-8.7 % Apical 3-13.7 % Global Strain-11.1 % M-Mode Dimensions EPSS1.3 cm LA (MM)6.1 (1.6-4.0cm) Ao Root(MM)2.4 (2.0-3.7cm) Aortic Valve AoV Vmax3.5 m/Sudeep Peak GR50.3 mmHgLVOT Vmax1.0 m/s AoV VTI0.9 mAo Mean GR31.1 mmHgLVOT VTI0.23 m CRIS (VMAX)1.03 cm2AVA (VTI) 1.0 cm2 Mitral Valve MV E Vmax78.8 cm/sDECEL Ssjs790 ms MV A Vmax89.9 cm/sP 1/2 T84 ms E/A ratio0.9MVA (PHT)2.6 cm2 TDI E/E' Brlmox73.1E/E' Wmsyeoo79.0 Medial E' Peak V3.93 cm/sLateral E' Peak V6.05 cm/s Tricuspid Valve RAP (EST) 8 mmHgRVSP8.0 mmHg Left Ventricle The left ventricle is normal size. Global hypokinesis of the left ventricle. Moderate concentric left ventricular hypertrophy. LVEF is 35-40%. Stage I diastolic dysfunction. Right Ventricle The right ventricle is normal size. The right ventricular systolic function is normal. Atria The left atrium size is normal. The right atrium size is normal. Aortic Valve Bioprosthetic aortic valve is present. No aortic regurgitation is present. Mild prosthetic stenosis. Valve gradients: peak 50mmHg, mean 31mmHg, with peak velocity 3.5 m/s. Mitral Valve The mitral valve is mildly thickened and sclerotic and opens well. Mild posterior annular calcificati on noted. There is mild mitral valve regurgitation noted. There is no mitral valve stenosis. Tricuspid Valve The tricuspid valve is normal in structure. There is no tricuspid valve regurgitation noted. Pulmonic Valve The pulmonary valve is normal in structure. There is no pulmonic valvular regurgitation. Great Vessels The aortic root is normal in size. IVC is not well visualized. Pericardium There is no pericardial effusion. Other Information Quality : Technically difficult study due to body habitus Rhythm : Bradycardia Conclusion Underlying rhythm is sinus bradycardia to 49 bpm with first degree AV block. Global hypokinesis of the left ventricle. LVEF is 35-40%. Moderate concentric left ventricular hypertrophy. Stage I diastolic dysfunction. Mild prosthetic aortic valve stenosis. Valve gradients: peak 50mmHg, mean 31mmHg, with peak velocity 3.5 m/s. Mild mitral valve regurgitation.
--- NOTE | 2024-12-15 15:33 | NUR ---
PATIENT WAS EDUCATED ON THE IMPORTANCE OF FOLLOWING UP WITH HIS PRIMARY CARE PROVIDER. PATIENT VERBALIZED UNDERSTANDING. IV WAS REMOVED WITHOUT COMPLICATIONS. PATIENT IS CURRENTLY AWAITING RIDE INSIDE THE ROOM.
--- NOTE | 2024-12-15 16:44 | NUR ---
patient was transported to the main entrance via w/c by nurse. no s/s of distress.
[2024-12-15] MEDS ORDERED: SACUBITRIL/VALSARTAN 1 EACH TABLET PO SCH (21:00)
[2024-12-15] MEDS ORDERED: SPIRONOLACTONE 25 MG TAB PO SCH (21:00)
[2024-12-16] MEDS ORDERED: VIBEGRON 75 MG PO SCH (09:00)
== END 2024-12-15 16:40 | disposition home or self-care (01) ==
LOC: EDH 17:08 → INTOOBSV 19:40 → EDHIP 19:40 → 4DH 22:19
PROVIDERS: ADMIT Internal Medicine Critical Care Medicine; ATTEND Internal Medicine Critical Care Medicine
DX: I13.0 Hypertensive heart and chronic kidney disease with heart failure and stage 1 through stage 4 chronic kidney disease, or unspecified chronic kidney disease (principal); N18.30 Chronic kidney disease, stage 3 unspecified; I25.10 Atherosclerotic heart disease of native coronary artery without angina pectoris; E78.00 Pure hypercholesterolemia, unspecified; R42 Dizziness and giddiness; M10.9 Gout, unspecified; M47.814 Spondylosis without myelopathy or radiculopathy, thoracic region; R79.1 Abnormal coagulation profile; M48.02 Spinal stenosis, cervical region; Z79.899 Other long term (current) drug therapy; Z98.890 Other specified postprocedural states
CPT/HCPCS: 96360; 96361 ×2; 99285; 84443; 84484; 80048; 80305; 82140; 85025; 85610; 85730; 81001; 36415; 71045; 70450; 72125; 93005; 82948 ×2; 93306; 93356; 97161; 97116; 97530 ×2; J7120; G0378 ×2